=== PATIENT | male | born 1970 | race Caucasian/White ===

== ENCOUNTER 2017-10-11 20:49 | Emergency (ER) | payer MEDICAID, OTHER ==
[~2017-10-11] VITALS: Ht 188 cm; Wt 134.3 kg
[2017-10-11 22:15] VITALS: BP 130/83
== END 2017-10-11 23:21 | disposition home or self-care (01) ==
LOC: ER 20:49
DX: S82.201K Unspecified fracture of shaft of right tibia, subsequent encounter for closed fracture with nonunion (principal); S82.401K Unspecified fracture of shaft of right fibula, subsequent encounter for closed fracture with nonunion; F15.10 Other stimulant abuse, uncomplicated; G89.29 Other chronic pain; Z88.5 Allergy status to narcotic agent; Z88.8 Allergy status to other drugs, medicaments and biological substances; W01.0XXA Fall on same level from slipping, tripping and stumbling without subsequent striking against object, initial encounter; Y93.89 Activity, other specified; Y92.89 Other specified places as the place of occurrence of the external cause; Y99.8 Other external cause status
CPT/HCPCS: 73590; 99284

== ENCOUNTER 2017-10-22 14:09 | Emergency (ER) | payer MEDICAID ==
[~2017-10-22] VITALS: Ht 188 cm; Wt 83.8 kg
[2017-10-22 14:39] VITALS: BP 135/98
== END 2017-10-22 14:40 | disposition home or self-care (01) ==
LOC: ER 14:09
DX: S82.191G Other fracture of upper end of right tibia, subsequent encounter for closed fracture with delayed healing (principal); S82.491 Other fracture of shaft of right fibula; G89.29 Other chronic pain; F15.90 Other stimulant use, unspecified, uncomplicated; Z88.6 Allergy status to analgesic agent; Z88.5 Allergy status to narcotic agent; X58.XXXD Exposure to other specified factors, subsequent encounter
CPT/HCPCS: 99281

== ENCOUNTER 2017-10-31 16:16 | Emergency (ER) | payer MEDICAID ==
[~2017-10-31] VITALS: Ht 185.4 cm; Wt 97.0 kg
[2017-10-31 16:29] VITALS: BP 138/90
[2017-11-01] MEDS ORDERED: AZIT250T2 PO (19:07)
== END 2017-10-31 19:36 | disposition left against medical advice (07) ==
LOC: ER 16:17
DX: J00 Acute nasopharyngitis [common cold] (principal); R05 Cough; R68.89 Other general symptoms and signs; Z53.21 Procedure and treatment not carried out due to patient leaving prior to being seen by health care provider

== ENCOUNTER 2017-11-01 17:30 | Emergency (ER) | payer MEDICAID ==
[~2017-11-01] VITALS: Ht 188 cm; Wt 81.4 kg
[2017-11-01 18:13] VITALS: BP 127/86
[2017-11-01] MEDS ORDERED: AZIT250T2 PO (19:07)
== END 2017-11-01 19:15 | disposition home or self-care (01) ==
LOC: ER 17:30
DX: J20.9 Acute bronchitis, unspecified (principal); R50.9 Fever, unspecified; G89.29 Other chronic pain; F15.90 Other stimulant use, unspecified, uncomplicated; Z59.0 Homelessness; Z56.0 Unemployment, unspecified; Z88.1 Allergy status to other antibiotic agents; Z88.5 Allergy status to narcotic agent; Z88.8 Allergy status to other drugs, medicaments and biological substances; Z79.2 Long term (current) use of antibiotics
CPT/HCPCS: 99283

== ENCOUNTER 2023-12-07 13:06 | Emergency (ER) | payer MEDICAID ==
[~2023-12-07] VITALS: Ht 188 cm; Wt 79.0 kg
[2023-12-07] MEDS ORDERED: TRAM50TA2 PO (15:00)
[2023-12-07 15:04] VITALS: BP 109/76; PULSE 87; RESP 18; TEMP 98; O2SAT 95
== END 2023-12-07 15:07 | disposition home or self-care (01) ==
LOC: ER 13:07
DX: S80.11XA Contusion of right lower leg, initial encounter (principal); G89.29 Other chronic pain; M25.521 Pain in right elbow; F17.200 Nicotine dependence, unspecified, uncomplicated; F15.90 Other stimulant use, unspecified, uncomplicated; Z88.6 Allergy status to analgesic agent; Z88.1 Allergy status to other antibiotic agents; Z88.5 Allergy status to narcotic agent; Z88.8 Allergy status to other drugs, medicaments and biological substances; Z79.899 Other long term (current) drug therapy; W19.XXXA Unspecified fall, initial encounter; Y93.89 Activity, other specified; Y92.89 Other specified places as the place of occurrence of the external cause; Y99.8 Other external cause status
CPT/HCPCS: 73080; 73590; 99284; L4360

== ENCOUNTER 2024-02-12 19:52 | Inpatient (IN) | payer MEDICAID ==
[~2024-02-12] VITALS: Ht 188 cm; Wt 83.2 kg
[2024-02-12 20:30] LABS: BASOPHILS # (AUTO) 0.1 X10'3 (0-0.2); HEMOGLOBIN 14.6 g/dl (14.0-17.9); MEAN PLATELET VOLUME 8.6 FL (7.4-10.4); MONOCYTES # (AUTO) 0.6 X10'3 (0-0.9); NEUTROPHILS # (AUTO) 4.3 X10'3 (1.8-7.7); RED CELL DISTRIBUTION WIDTH 14.2 % (11.5-14.5)
[2024-02-12 20:31] LABS: BASOPHILS % (AUTO) 1.5 % (0-1); EOSINOPHILS # (AUTO) 1.1 X10'3 (0-0.9); EOSINOPHILS % (AUTO) 12.7 % (0-6); HEMATOCRIT 43.5 % (42.0-52.0); LYMPHOCYTES # (AUTO) 2.5 X10'3 (1.1-4.8); LYMPHOCYTES % (AUTO) 29.3 % (21-51); MEAN CORPUSCULAR HEMOGLOBIN 33.6 PG (27.0-31.0); MEAN CORPUSCULAR HGB CONC 33.6 g/dL (33.0-36.5); MONOCYTES % (AUTO) 7.1 % (2-12); NEUTROPHILS % (AUTO) 49.4 % (42-75); PLATELET COUNT 279 X10'3 (140-440); RED BLOOD COUNT 4.35 X10'6 (4.70-6.10); WHITE BLOOD COUNT 8.6 X10'3 (4.5-11.0)
[2024-02-12 20:41] LABS: ALANINE AMINOTRANSFERASE 52 U/L (12-78); ALBUMIN 3.3 G/DL (3.4-5.0); ALBUMIN/GLOBULIN RATIO 1.1 (1.1-1.5); ALKALINE PHOSPHATASE 81 IU/L (46-116); ANION GAP 9 (8-16); ASPARTATE AMINO TRANSFERASE 38 U/L (10-37); BILIRUBIN,TOTAL 0.9 MG/DL (0.1-1.0); BLOOD UREA NITROGEN 18 MG/DL (7-18); BUN/CREATININE RATIO 18.2 (10.0-20.0); CALCIUM 8.1 MG/DL (8.5-10.1); CHLORIDE 106 MMOL/L (99-107); CREATININE 0.99 MG/DL (0.60-1.10); GLUCOSE 125 MG/DL (70-104); POTASSIUM 3.5 MMOL/L (3.5-5.1); SODIUM 138 MMOL/L (135-145); TOTAL CARBON DIOXIDE 23.5 MMOL/L (24-32); TOTAL PROTEIN 6.4 G/DL (6.4-8.2); eCRCL 99 ML/MIN; eGFR 79 ML/MIN
[2024-02-12 20:49] LABS: PRO BRAIN NATRIURETIC PEPTIDE 6545 PG/ML (0-125)
[2024-02-12] MEDS ORDERED: iohexol 350MG/ML 100ml bottle IV ONE (20:58)
[2024-02-12 21:10] LABS: BURR CELLS FEW; LARGE PLATELETS FEW; PLATELET ESTIMATE NORMAL; TARGET CELLS FEW
[2024-02-12 21:39] LABS: APTT 26 SECONDS (22-32); INR 1.1 INR; PROTHROMBIN TIME 11.3 SECONDS (9.0-12.0)
[2024-02-12] MEDS: furosemide 10 MG/1 ML 10ml inj IV ONE (21:47)
[2024-02-12] MEDS: aspirin 81mg tab.chew PO ONE (21:48)
[2024-02-12] MEDS: HEPARIN DRIP-CARDIAC**PHARMACIST-TO-DOSE IV ONE (21:53)
[2024-02-12] MEDS: heparin 10,000 units/1 ML INJ IV ONE (22:02)
[2024-02-12] MEDS: heparin 25,000 UNIT/250ml bag 250 ML IV PRN (22:04)
[2024-02-12] MEDS: MESSAGE TO NURSING IV ONE (22:10)
[2024-02-12 22:28] LABS: BASOPHILS # (AUTO) 0.1 X10'3 (0-0.2); MEAN PLATELET VOLUME 8.8 FL (7.4-10.4); MONOCYTES # (AUTO) 0.7 X10'3 (0-0.9)
[2024-02-12 22:29] LABS: BASOPHILS % (AUTO) 1.4 % (0-1); EOSINOPHILS % (AUTO) 10.3 % (0-6); HEMATOCRIT 45.6 % (42.0-52.0); HEMOGLOBIN 15.4 g/dl (14.0-17.9); LYMPHOCYTES # (AUTO) 2.2 X10'3 (1.1-4.8); LYMPHOCYTES % (AUTO) 22.6 % (21-51); MEAN CORPUSCULAR HEMOGLOBIN 33.8 PG (27.0-31.0); MEAN CORPUSCULAR HGB CONC 33.8 g/dL (33.0-36.5); MEAN CORPUSCULAR VOLUME 99.9 FL (78-98); MONOCYTES % (AUTO) 7.3 % (2-12); NEUTROPHILS # (AUTO) 5.7 X10'3 (1.8-7.7); NEUTROPHILS % (AUTO) 58.4 % (42-75); PLATELET COUNT 286 X10'3 (140-440); RED BLOOD COUNT 4.56 X10'6 (4.70-6.10); RED CELL DISTRIBUTION WIDTH 14.2 % (11.5-14.5); WHITE BLOOD COUNT 9.7 X10'3 (4.5-11.0)
[2024-02-12] MEDS ORDERED: magnesium sulf-water 2g/50mL 50 ML IV PRN (22:45)
[2024-02-12] MEDS ORDERED: magnesium hydroxide 30ml (MOM) UD suspension PO PRN (22:45)
[2024-02-12] MEDS ORDERED: PERFLUTREN PROTEIN-A MICROSPHR (Optison) 0.22 MG/ML 3ML VIAL IV PRN (22:45)
[2024-02-12] MEDS ORDERED: magnesium sulf-water 4G/100mL 100 ML IV PRN (22:45)
[2024-02-12] MEDS ORDERED: morphine 2 MG/ML inj. syringe IV PRN (22:45)
[2024-02-12] MEDS ORDERED: acetaminophen 325mg tablet PO PRN (22:45)
[2024-02-12] MEDS ORDERED: magnesium Cl slow-release 64mg tablet PO PRN (22:45)
[2024-02-12] MEDS ORDERED: ondansetron/PF 4mg/2ml inj IV PRN (22:45)
[2024-02-12] MEDS ORDERED: potassium Cl 40MEQ/1/2NS 520ml 520 ML IV PRN (22:45)
[2024-02-12] MEDS ORDERED: potassium Cl 20 mEq SR tablet PO PRN ×2 (22:45)
[2024-02-12] MEDS ORDERED: mag hydrox/Alum hydrox/simeth 30ml oral suspension PO PRN (22:45)
[2024-02-12] MEDS: ipratropium/albuterol 3ml nebule NEB SCH (23:00)
[2024-02-12 23:14] LABS: HEMOGLOBIN A1C 5.3 % (4.5-6.2)
[2024-02-12 23:18] VITALS: PULSE 98; RESP 12; O2SAT 94
[2024-02-12 23:25] VITALS: PULSE 95; RESP 12
[2024-02-13] VITALS (20 sets, daily range): BP systolic 78–113; BP diastolic 49–79; PULSE 79–116; RESP 12–22; TEMP 97.3–97.6; O2SAT 88–100
[2024-02-13] MEDS: normal saline 1000ml 1,000 ML IV SCH (00:05)
[2024-02-13] MEDS: CefTRIAXone 2gm/D5W 50ml BAG 50 ML IV ONE (00:05)
[2024-02-13] MEDS: methylPREDNISolone sod succ/PF 40mg inj. IV SCH ×2 (02:04→16:00)
[2024-02-13 05:04] LABS: BASOPHILS # (AUTO) 0.1 X10'3 (0-0.2); EOSINOPHILS # (AUTO) 0.4 X10'3 (0-0.9); HEMOGLOBIN 15.3 g/dl (14.0-17.9); LYMPHOCYTES # (AUTO) 0.9 X10'3 (1.1-4.8); MEAN PLATELET VOLUME 9.2 FL (7.4-10.4); MONOCYTES % (AUTO) 2.6 % (2-12)
[2024-02-13 05:06] LABS: BASOPHILS % (AUTO) 1.1 % (0-1); HEMATOCRIT 46.7 % (42.0-52.0); LYMPHOCYTES % (AUTO) 9.4 % (21-51); MEAN CORPUSCULAR HEMOGLOBIN 32.8 PG (27.0-31.0); MEAN CORPUSCULAR HGB CONC 32.8 g/dL (33.0-36.5); MEAN CORPUSCULAR VOLUME 100.1 FL (78-98); MONOCYTES # (AUTO) 0.3 X10'3 (0-0.9); NEUTROPHILS # (AUTO) 8.2 X10'3 (1.8-7.7); NEUTROPHILS % (AUTO) 82.9 % (42-75); PLATELET COUNT 288 X10'3 (140-440); RED BLOOD COUNT 4.67 X10'6 (4.70-6.10); RED CELL DISTRIBUTION WIDTH 14.1 % (11.5-14.5); WHITE BLOOD COUNT 9.9 X10'3 (4.5-11.0)
[2024-02-13 05:28] LABS: ALANINE AMINOTRANSFERASE 50 U/L (12-78); ALBUMIN 3.2 G/DL (3.4-5.0); ALBUMIN/GLOBULIN RATIO 0.9 (1.1-1.5); ALKALINE PHOSPHATASE 82 IU/L (46-116); ANION GAP 8 (8-16); ASPARTATE AMINO TRANSFERASE 39 U/L (10-37); BLOOD UREA NITROGEN 15 MG/DL (7-18); BUN/CREATININE RATIO 23.1 (10.0-20.0); CALCIUM 8.2 MG/DL (8.5-10.1); CHLORIDE 106 MMOL/L (99-107); CHOL/HDL RATIO 3.9 (0.00-4.99); CHOLESTEROL 146 MG/DL (0-200); CREATININE 0.65 MG/DL (0.60-1.10); GLUCOSE 124 MG/DL (70-104); HDL CHOLESTEROL 37 MG/DL (35-60); LDL CHOLESTEROL 101 MG/DL (50-100); POTASSIUM 3.5 MMOL/L (3.5-5.1); PRO BRAIN NATRIURETIC PEPTIDE 7635 PG/ML (0-125); SODIUM 140 MMOL/L (135-145); TOTAL PROTEIN 6.8 G/DL (6.4-8.2); TRIGLYCERIDES 66 MG/DL (20-135); eCRCL 151 ML/MIN; eGFR > 90 ML/MIN
[2024-02-13] MEDS: heparin 10,000 units/1 ML INJ IV PRN (05:51)
[2024-02-13] MEDS: MESSAGE TO NURSING IV ONE ×3 (05:54→20:50)
[2024-02-13] MEDS: atorvastatin 20mg tablet PO SCH (07:25)
[2024-02-13] MEDS: aspirin 81mg, enteric-coated 1 TAB TABLET.DR PO SCH (07:25)
[2024-02-13] MEDS: docusate sod 100mg capsule PO SCH (08:00)
[2024-02-13] MEDS: K and/or MAG REPLACEMENT MC SCH (08:00)
[2024-02-13] MEDS: carVEDilol 3.125mg tablet PO SCH (08:25)
[2024-02-13] MEDS ORDERED: nitroGLYCERIN 0.4mg SUBLingual tab SL PRN (08:25)
[2024-02-13] MEDS ORDERED: metoprolol tartrate 1mg/ml inj IV PRN (08:25)
[2024-02-13] MEDS ORDERED: aminophylline 250mg/10ml inj. IV PRN (08:25)
[2024-02-13] MEDS: regadenoson 0.4mg/5ml syringe IV PRN (16:52)
[2024-02-14] VITALS (13 sets, daily range): BP systolic 93–104; BP diastolic 58–79; PULSE 87–106; RESP 16–23; TEMP 96.9–98.4; O2SAT 92–98
[2024-02-14 05:53] LABS: BASOPHILS % (AUTO) 0.2 % (0-1); MONOCYTES # (AUTO) 0.3 X10'3 (0-0.9)
[2024-02-14 05:55] LABS: EOSINOPHILS % (AUTO) 0.1 % (0-6); HEMATOCRIT 48.2 % (42.0-52.0); HEMOGLOBIN 16.5 g/dl (14.0-17.9); LYMPHOCYTES # (AUTO) 0.9 X10'3 (1.1-4.8); LYMPHOCYTES % (AUTO) 8.1 % (21-51); MEAN CORPUSCULAR HEMOGLOBIN 34.2 PG (27.0-31.0); MEAN CORPUSCULAR HGB CONC 34.2 g/dL (33.0-36.5); MEAN CORPUSCULAR VOLUME 99.8 FL (78-98); MEAN PLATELET VOLUME 9.9 FL (7.4-10.4); MONOCYTES % (AUTO) 2.9 % (2-12); NEUTROPHILS # (AUTO) 9.7 X10'3 (1.8-7.7); NEUTROPHILS % (AUTO) 88.7 % (42-75); PLATELET COUNT 304 X10'3 (140-440); RED BLOOD COUNT 4.83 X10'6 (4.70-6.10); RED CELL DISTRIBUTION WIDTH 14.5 % (11.5-14.5)
[2024-02-14 05:58] LABS: ALANINE AMINOTRANSFERASE 43 U/L (12-78); ALBUMIN/GLOBULIN RATIO 0.8 (1.1-1.5); ALKALINE PHOSPHATASE 77 IU/L (46-116); ANION GAP 6 (8-16); ASPARTATE AMINO TRANSFERASE 22 U/L (10-37); BILIRUBIN,TOTAL 0.7 MG/DL (0.1-1.0); BLOOD UREA NITROGEN 17 MG/DL (7-18); CALCIUM 8.4 MG/DL (8.5-10.1); CHLORIDE 102 MMOL/L (99-107); CREATININE 0.81 MG/DL (0.60-1.10); GLUCOSE 160 MG/DL (70-104); MAGNESIUM 1.8 MG/DL (1.5-2.4); POTASSIUM 4.1 MMOL/L (3.5-5.1); SODIUM 133 MMOL/L (135-145); TOTAL CARBON DIOXIDE 25.4 MMOL/L (24-32); TOTAL PROTEIN 6.7 G/DL (6.4-8.2); eCRCL 121 ML/MIN; eGFR > 90 ML/MIN
[2024-02-14] MEDS: MESSAGE TO NURSING IV ONE (07:01)
[2024-02-14] MEDS: losartan 25mg tablet PO SCH (08:00)
[2024-02-14] MEDS: DAPAGLIFLOZIN 10MG TABLET PO SCH (10:01)
[2024-02-14] MEDS: nicotine 14mg patch - 24hr TD SCH (10:02)
[2024-02-14 18:15] LABS: BILIRUBIN,URINE NEGATIVE (Neg); CLARITY,URINE CLEAR (Clear); COLOR,URINE YELLOW (Yellow); GLUCOSE, URINE >=1000 mg/dl (Neg); KETONES,URINE NEGATIVE (Neg); LEUKOCYTE ESTERASE ,URINE NEGATIVE (Neg); NITRITES, URINE NEGATIVE (Neg); OCCULT BLOOD,URINE NEGATIVE (Neg); PH,URINE 7.5 (4.8-8.0); PROTEIN,URINE NEGATIVE (Neg)
[2024-02-14 18:22] LABS: UA COLLECTION TYPE NON-SPECIFIED
[2024-02-14 18:23] LABS: BACTERIA,URINE NONE SEEN /HPF (Neg); MUCUS STRANDS NONE SEEN /LPF (Neg); RBC,URINE 0-2 /HPF (0-2); SQUAMOUS EPITHELIAL CELL,UR NONE SEEN /LPF (FEW); WBC,URINE 0-4 /HPF (0-4)
[2024-02-14 18:24] LABS: URINE AMPHETAMINE SCREEN NEGATIVE (Neg); URINE BARBITUATE SCREEN NEGATIVE (Neg); URINE BENZODIAZEPINES SCREEN NEGATIVE (Neg); URINE CANNABINOID SCREEN NEGATIVE (Neg); URINE COCAINE SCREEN NEGATIVE (Neg); URINE METHADONE SCREEN NEGATIVE (Neg); URINE OPIATE SCREEN NEGATIVE (Neg); URINE PHENCYCLIDINE SCREEN NEGATIVE (Neg)
[2024-02-14] MEDS: heparin, porcine 5000 units/ml vial SQ SCH (20:58)
[2024-02-15] VITALS (8 sets, daily range): BP systolic 96–101; BP diastolic 71–77; PULSE 74–103; RESP 14–20; TEMP 97–97.6; O2SAT 95–100
[2024-02-15] MEDS: spironolactone 25 MG tablet PO SCH (07:42)
[2024-02-15] MEDS: furosemide 40mg tablet PO SCH (07:43)
[2024-02-15] MEDS: losartan 25mg tablet PO SCH (07:43)
[2024-02-15] MEDS ORDERED: DAPAGLIFLOZIN 10MG TABLET PO SCH (08:00)
[2024-02-15 08:12] LABS: HEMOGLOBIN 16.9 g/dl (14.0-17.9); LYMPHOCYTES # (AUTO) 0.8 X10'3 (1.1-4.8); MONOCYTES # (AUTO) 0.5 X10'3 (0-0.9); NEUTROPHILS # (AUTO) 11.1 X10'3 (1.8-7.7); RED CELL DISTRIBUTION WIDTH 14.3 % (11.5-14.5)
[2024-02-15 08:14] LABS: BASOPHILS % (AUTO) 0.1 % (0-1); EOSINOPHILS % (AUTO) 0 % (0-6); HEMATOCRIT 51.4 % (42.0-52.0); LYMPHOCYTES % (AUTO) 6.3 % (21-51); MEAN CORPUSCULAR HEMOGLOBIN 33.1 PG (27.0-31.0); MEAN CORPUSCULAR HGB CONC 32.9 g/dL (33.0-36.5); MEAN CORPUSCULAR VOLUME 100.5 FL (78-98); MEAN PLATELET VOLUME 10.2 FL (7.4-10.4); NEUTROPHILS % (AUTO) 89.6 % (42-75); PLATELET COUNT 275 X10'3 (140-440); RED BLOOD COUNT 5.11 X10'6 (4.70-6.10); WHITE BLOOD COUNT 12.4 X10'3 (4.5-11.0)
[2024-02-15 08:44] LABS: ALANINE AMINOTRANSFERASE 34 U/L (12-78); ALBUMIN 3.4 G/DL (3.4-5.0); ALBUMIN/GLOBULIN RATIO 0.9 (1.1-1.5); ALKALINE PHOSPHATASE 70 IU/L (46-116); ANION GAP 11 (8-16); ASPARTATE AMINO TRANSFERASE 20 U/L (10-37); BILIRUBIN,TOTAL 0.4 MG/DL (0.1-1.0); BLOOD UREA NITROGEN 20 MG/DL (7-18); BUN/CREATININE RATIO 26.7 (10.0-20.0); CALCIUM 9.1 MG/DL (8.5-10.1); CHLORIDE 99 MMOL/L (99-107); CREATININE 0.75 MG/DL (0.60-1.10); GLUCOSE 127 MG/DL (70-104); MAGNESIUM 2.2 MG/DL (1.5-2.4); SODIUM 133 MMOL/L (135-145); TOTAL CARBON DIOXIDE 23.5 MMOL/L (24-32); TOTAL PROTEIN 7.3 G/DL (6.4-8.2); eCRCL 131 ML/MIN; eGFR > 90 ML/MIN
[2024-02-15 08:45] LABS: POTASSIUM 4.6 MMOL/L (3.5-5.1)
[2024-02-15] MEDS ORDERED: NICO-631 TD (10:02)
[2024-02-15] MEDS ORDERED: DAPA10TA PO (10:02)
[2024-02-15] MEDS ORDERED: FURO20TA4 PO (10:02)
[2024-02-15] MEDS ORDERED: MIDO5TAB4 PO (10:02)
[2024-02-15] MEDS ORDERED: ATOR20TA66 PO (10:02)
[2024-02-15] MEDS ORDERED: ASPI-1071 PO (10:02)
[2024-02-15] MEDS ORDERED: COR3.125T PO (10:02)
[2024-02-15] MEDS ORDERED: SPIR25TA PO (10:02)
[2024-02-15] MEDS ORDERED: LOSA25TA41 PO (10:02)
== END 2024-02-15 14:32 | disposition home or self-care (01) | DRG 190 ==
LOC: ER 19:53 → ED HOLD 22:54 → EDBEDREQ 02-13 00:30 → PCU 3S 02-13 02:00
PROVIDERS: ADMIT Internal Medicine Pulmonary Disease; ATTEND Family Medicine
PROC: B32T1ZZ Computerized Tomography (CT Scan) of Left Pulmonary Artery using Low Osmolar Contrast (ICD-10-PCS; 2024-02-12)
PROC: B3201ZZ Computerized Tomography (CT Scan) of Thoracic Aorta using Low Osmolar Contrast (ICD-10-PCS; 2024-02-12)
PROC: B32S1ZZ Computerized Tomography (CT Scan) of Right Pulmonary Artery using Low Osmolar Contrast (ICD-10-PCS; 2024-02-12)
PROC: 4A02XM4 Measurement of Cardiac Total Activity, External Approach (ICD-10-PCS; principal; 2024-02-13)
PROC: 3E033HZ Introduction of Radioactive Substance into Peripheral Vein, Percutaneous Approach (ICD-10-PCS; 2024-02-13)
DX: I21.4 Non-ST elevation (NSTEMI) myocardial infarction (principal); I50.41 Acute combined systolic (congestive) and diastolic (congestive) heart failure; I42.0 Dilated cardiomyopathy; J44.1 Chronic obstructive pulmonary disease with (acute) exacerbation; F10.10 Alcohol abuse, uncomplicated; F15.10 Other stimulant abuse, uncomplicated; I42.7 Cardiomyopathy due to drug and external agent; G89.29 Other chronic pain; F17.210 Nicotine dependence, cigarettes, uncomplicated; Z88.5 Allergy status to narcotic agent; Z88.1 Allergy status to other antibiotic agents; Z90.81 Acquired absence of spleen; Z59.00 Homelessness unspecified
CPT/HCPCS: 36415; 71045; 71275; 78452; 80053; 80061; 80305; 81001; 83036; 83605; 83735; 83880; 84145; 84484; 85008; 85025; 85610; 85730; 87040; 87081; 93005; 93017; 93306; 94640; 94760; 99291; A4615; A6590; A9500; G0378; J0696; J1644; J1940; J2785; J2919; J7030; Q9967

== ENCOUNTER 2024-02-29 20:19 | Emergency (ER) | payer MEDICAID ==
[~2024-02-29] VITALS: Ht 188 cm; Wt 81.5 kg
[~2024-02-29 20:19] MED LIST: ASPI-1071 PO; ATOR20TA66 PO; COR3.125T PO; DAPA10TA PO; FURO20TA4 PO; LOSA25TA41 PO; MIDO5TAB4 PO; NICO-631 TD; SPIR25TA PO
[2024-02-29] MEDS ORDERED: DAPA10TA PO (20:58)
[2024-02-29] MEDS ORDERED: NICO-631 TOP (20:58)
[2024-02-29] MEDS ORDERED: CARV3.122 PO (20:58)
[2024-02-29 21:13] VITALS: BP 97/58; PULSE 92; RESP 15; TEMP 98.1; O2SAT 96
== END 2024-02-29 21:15 | disposition home or self-care (01) ==
LOC: ER 20:20
DX: I10 Essential (primary) hypertension (principal); G89.29 Other chronic pain; F15.90 Other stimulant use, unspecified, uncomplicated; Z88.8 Allergy status to other drugs, medicaments and biological substances; Z88.5 Allergy status to narcotic agent; Z88.6 Allergy status to analgesic agent; Z79.82 Long term (current) use of aspirin; Z79.899 Other long term (current) drug therapy; Z72.89 Other problems related to lifestyle; Z59.00 Homelessness unspecified; Z56.0 Unemployment, unspecified; Z76.0 Encounter for issue of repeat prescription
CPT/HCPCS: 99281

== ENCOUNTER 2024-03-11 02:05 | Inpatient (IN) | payer MEDICAID ==
[2024-03-11] VITALS (7 sets, daily range): BP systolic 96–102; BP diastolic 66–75; PULSE 95–108; RESP 14–20; TEMP 97.2–98.1; O2SAT 94–100
[~2024-03-11] VITALS: Ht 188 cm; Wt 79.8 kg
[~2024-03-11 02:05] MED LIST changes: +CARV3.122 PO; +NICO-631 TOP
[2024-03-11 02:46] LABS: BASOPHILS # (AUTO) 0.1 X10'3 (0-0.2); BASOPHILS % (AUTO) 1.3 % (0-1); EOSINOPHILS # (AUTO) 0.2 X10'3 (0-0.9); EOSINOPHILS % (AUTO) 3.2 % (0-6); HEMATOCRIT 38.7 % (42.0-52.0); LYMPHOCYTES # (AUTO) 2.1 X10'3 (1.1-4.8); LYMPHOCYTES % (AUTO) 28.9 % (21-51); MEAN CORPUSCULAR HEMOGLOBIN 33.2 PG (27.0-31.0); MEAN CORPUSCULAR HGB CONC 33.6 g/dL (33.0-36.5); MEAN CORPUSCULAR VOLUME 98.7 FL (78-98); MEAN PLATELET VOLUME 8.3 FL (7.4-10.4); MONOCYTES # (AUTO) 0.6 X10'3 (0-0.9); MONOCYTES % (AUTO) 7.9 % (2-12); NEUTROPHILS # (AUTO) 4.2 X10'3 (1.8-7.7); NEUTROPHILS % (AUTO) 58.7 % (42-75); PLATELET COUNT 279 X10'3 (140-440); RED BLOOD COUNT 3.92 X10'6 (4.70-6.10); RED CELL DISTRIBUTION WIDTH 13.7 % (11.5-14.5); WHITE BLOOD COUNT 7.2 X10'3 (4.5-11.0)
[2024-03-11 03:00] LABS: ALANINE AMINOTRANSFERASE 153 U/L (12-78); ALBUMIN 2.9 G/DL (3.4-5.0); ALBUMIN/GLOBULIN RATIO 0.8 (1.1-1.5); ALKALINE PHOSPHATASE 178 IU/L (46-116); ANION GAP 9 (8-16); ASPARTATE AMINO TRANSFERASE 120 U/L (10-37); BLOOD UREA NITROGEN 19 MG/DL (7-18); BUN/CREATININE RATIO 19.6 (10.0-20.0); CALCIUM 7.9 MG/DL (8.5-10.1); CHLORIDE 102 MMOL/L (99-107); CREATININE 0.97 MG/DL (0.60-1.10); GLUCOSE 118 MG/DL (70-104); POTASSIUM 3.2 MMOL/L (3.5-5.1); SODIUM 134 MMOL/L (135-145); TOTAL CARBON DIOXIDE 22.6 MMOL/L (24-32); TOTAL PROTEIN 6.7 G/DL (6.4-8.2); eCRCL 98 ML/MIN; eGFR 81 ML/MIN
[2024-03-11 03:07] LABS: PRO BRAIN NATRIURETIC PEPTIDE 15609 PG/ML (0-125)
[2024-03-11 03:34] LABS: ETHANOL < 10 MG/DL (<10); MAGNESIUM 1.7 MG/DL (1.5-2.4)
[2024-03-11] MEDS: furosemide 10 MG/1 ML 10ml inj IV ONE (03:35)
[2024-03-11] MEDS ORDERED: magnesium sulf-water 4G/100mL 100 ML IV PRN (04:40)
[2024-03-11] MEDS ORDERED: ondansetron/PF 4mg/2ml inj IV PRN (04:40)
[2024-03-11] MEDS ORDERED: potassium Cl 40MEQ/1/2NS 520ml 520 ML IV PRN (04:40)
[2024-03-11] MEDS ORDERED: magnesium Cl slow-release 64mg tablet PO PRN (04:40)
[2024-03-11] MEDS ORDERED: mag hydrox/Alum hydrox/simeth 30ml oral suspension PO PRN (04:40)
[2024-03-11] MEDS ORDERED: potassium Cl 20 mEq SR tablet PO PRN (04:40)
[2024-03-11] MEDS ORDERED: magnesium sulf-water 2g/50mL 50 ML IV PRN (04:40)
[2024-03-11] MEDS: aspirin 325mg tablet PO ONE (04:44)
[2024-03-11] MEDS: carVEDilol 3.125mg tablet PO SCH ×2 (04:44→08:09)
[2024-03-11 04:51] LABS: APTT 25 SECONDS (22-32); INR 1.1 INR; PROTHROMBIN TIME 11.9 SECONDS (9.0-12.0)
[2024-03-11] MEDS: LORazepam 2 mg/ml vial IV ONE (05:19)
[2024-03-11] MEDS: enoxaparin 100mg/ml syringe SUBCUT ONE (05:30)
[2024-03-11] MEDS: K and/or MAG REPLACEMENT MC SCH (07:40)
[2024-03-11] MEDS: atorvastatin 20mg tablet PO SCH (08:07)
[2024-03-11] MEDS: potassium Cl 20 mEq SR tablet PO PRN (08:08)
[2024-03-11] MEDS: midodrine tablet 2.5 MG TABLET PO SCH (08:08)
[2024-03-11] MEDS: furosemide 10 MG/1 ML 10ml inj IV SCH (08:08)
[2024-03-11] MEDS: aspirin 81mg, enteric-coated 1 TAB TABLET.DR PO SCH (08:09)
[2024-03-11] MEDS: spironolactone 25 MG tablet PO SCH (08:10)
[2024-03-11] MEDS: ipratropium/albuterol 3ml nebule NEB PRN (08:50)
[2024-03-11 10:25] LABS: URINE AMPHETAMINE SCREEN POSITIVE (Neg); URINE BARBITUATE SCREEN NEGATIVE (Neg); URINE BENZODIAZEPINES SCREEN NEGATIVE (Neg); URINE CANNABINOID SCREEN NEGATIVE (Neg); URINE COCAINE SCREEN NEGATIVE (Neg); URINE METHADONE SCREEN NEGATIVE (Neg); URINE OPIATE SCREEN NEGATIVE (Neg); URINE PHENCYCLIDINE SCREEN NEGATIVE (Neg)
[2024-03-11 11:12] LABS: BILIRUBIN,URINE NEGATIVE (Neg); CLARITY,URINE CLEAR (Clear); COLOR,URINE YELLOW (Yellow); GLUCOSE, URINE NEGATIVE (Neg); KETONES,URINE NEGATIVE (Neg); LEUKOCYTE ESTERASE ,URINE NEGATIVE (Neg); NITRITES, URINE NEGATIVE (Neg); OCCULT BLOOD,URINE NEGATIVE (Neg); PROTEIN,URINE NEGATIVE (Neg); UROBILINOGEN,URINE 0.2 E.U/dL (0.2-1.0)
[2024-03-11 11:18] LABS: UA COLLECTION TYPE VOIDED
[2024-03-11] MEDS: midodrine 5mg tablet ONE (13:24)
[2024-03-11] MEDS: heparin, porcine 5000 units/ml vial SQ SCH (20:39)
[2024-03-11] MEDS ORDERED: cyclobenzaprine 10mg tablet PO PRN (22:20)
[2024-03-11] MEDS ORDERED: HYDROcodone/acetaminophen 10/325mg tab PO PRN (22:20)
[2024-03-12] VITALS (13 sets, daily range): BP systolic 98–113; BP diastolic 63–76; PULSE 74–114; RESP 16–23; TEMP 97.4–98.6; O2SAT 20–98
[2024-03-12 10:54] LABS: BASOPHILS # (AUTO) 0.1 X10'3 (0-0.2); BASOPHILS % (AUTO) 1.2 % (0-1); LYMPHOCYTES # (AUTO) 1.9 X10'3 (1.1-4.8); MEAN CORPUSCULAR HEMOGLOBIN 33.2 PG (27.0-31.0); MONOCYTES # (AUTO) 0.6 X10'3 (0-0.9); NEUTROPHILS # (AUTO) 6.5 X10'3 (1.8-7.7); WHITE BLOOD COUNT 9.5 X10'3 (4.5-11.0)
[2024-03-12 10:56] LABS: EOSINOPHILS # (AUTO) 0.4 X10'3 (0-0.9); HEMOGLOBIN 15.3 g/dl (14.0-17.9); LYMPHOCYTES % (AUTO) 20.5 % (21-51); MEAN CORPUSCULAR HGB CONC 33.4 g/dL (33.0-36.5); MEAN CORPUSCULAR VOLUME 99.5 FL (78-98); MEAN PLATELET VOLUME 9.6 FL (7.4-10.4); MONOCYTES % (AUTO) 6.2 % (2-12); NEUTROPHILS % (AUTO) 68.1 % (42-75); PLATELET COUNT 284 X10'3 (140-440); RED BLOOD COUNT 4.62 X10'6 (4.70-6.10)
[2024-03-12 11:06] LABS: INR 1.1 INR; PROTHROMBIN TIME 11.6 SECONDS (9.0-12.0)
[2024-03-12 11:09] LABS: ALBUMIN 2.9 G/DL (3.4-5.0); ANION GAP 7 (8-16); BLOOD UREA NITROGEN 17 MG/DL (7-18); BUN/CREATININE RATIO 18.5 (10.0-20.0); CALCIUM 8.9 MG/DL (8.5-10.1); CHLORIDE 100 MMOL/L (99-107); CREATININE 0.92 MG/DL (0.60-1.10); GLUCOSE 137 MG/DL (70-104); MAGNESIUM 1.9 MG/DL (1.5-2.4); PHOSPHORUS 3.3 MG/DL (2.3-4.5); POTASSIUM 4.1 MMOL/L (3.5-5.1); SODIUM 135 MMOL/L (135-145); eCRCL 104 ML/MIN; eGFR 86 ML/MIN
[2024-03-12] MEDS: oxyCODONE/APAP 5-325mg tablet PO PRN (16:37)
[2024-03-12] MEDS: midodrine 5mg tablet PO SCH (16:37)
[2024-03-12 18:31] LABS: D-DIMER 0.76 MG/L FEU (0-0.50)
[2024-03-12] MEDS ORDERED: carVEDilol 3.125mg tablet PO SCH ×2 (20:00)
[2024-03-12] MEDS: furosemide 20MG tablet PO ONE (23:17)
[2024-03-13] VITALS (13 sets, daily range): BP systolic 89–100; BP diastolic 62–77; PULSE 93–113; RESP 14–26; TEMP 97.3–97.6; O2SAT 95–98
[2024-03-13 06:52] LABS: HBSAG SCREEN Negative (Negative); HEP B CORE AB, IGM Negative (Negative); HEP B CORE AB, TOT Negative (Negative); HEP B SURF AB Non Reactive (.)
[2024-03-13] MEDS ORDERED: furosemide 20MG tablet PO SCH (08:00)
[2024-03-13] MEDS ORDERED: DAPAGLIFLOZIN 10MG TABLET PO SCH (08:00)
[2024-03-13] MEDS ORDERED: aspirin 81mg, enteric-coated 1 TAB TABLET.DR PO SCH (08:00)
[2024-03-13] MEDS ORDERED: spironolactone 25 MG tablet PO SCH (08:00)
[2024-03-13] MEDS: DAPAGLIFLOZIN 10MG TABLET PO SCH (08:00)
[2024-03-13] MEDS ORDERED: nicotine 14mg patch - 24hr TD SCH (08:00)
[2024-03-13] MEDS ORDERED: atorvastatin 20mg tablet PO SCH (08:00)
[2024-03-13] MEDS: losartan 25mg tablet PO SCH (08:00)
[2024-03-13] MEDS: nicotine 14mg patch - 24hr TD SCH (09:11)
[2024-03-13] MEDS: LORazepam 1 MG tablet PO SCH (09:11)
[2024-03-13 09:54] LABS: BASOPHILS # (AUTO) 0.1 X10'3 (0-0.2); BASOPHILS % (AUTO) 0.8 % (0-1); EOSINOPHILS # (AUTO) 0.3 X10'3 (0-0.9); EOSINOPHILS % (AUTO) 3.5 % (0-6); HEMATOCRIT 42.6 % (42.0-52.0); HEMOGLOBIN 14.3 g/dl (14.0-17.9); LYMPHOCYTES # (AUTO) 1.4 X10'3 (1.1-4.8); LYMPHOCYTES % (AUTO) 14.7 % (21-51); MEAN CORPUSCULAR HEMOGLOBIN 33.3 PG (27.0-31.0); MEAN CORPUSCULAR HGB CONC 33.6 g/dL (33.0-36.5); MEAN PLATELET VOLUME 9.7 FL (7.4-10.4); MONOCYTES # (AUTO) 0.6 X10'3 (0-0.9); MONOCYTES % (AUTO) 6.1 % (2-12); NEUTROPHILS # (AUTO) 7.2 X10'3 (1.8-7.7); NEUTROPHILS % (AUTO) 74.9 % (42-75); PLATELET COUNT 274 X10'3 (140-440); RED CELL DISTRIBUTION WIDTH 13.8 % (11.5-14.5); WHITE BLOOD COUNT 9.6 X10'3 (4.5-11.0)
[2024-03-13 11:22] LABS: ALBUMIN 2.5 G/DL (3.4-5.0); ANION GAP 10 (8-16); BLOOD UREA NITROGEN 16 MG/DL (7-18); CHLORIDE 98 MMOL/L (99-107); CREATININE 0.89 MG/DL (0.60-1.10); GLUCOSE 183 MG/DL (70-104); MAGNESIUM 1.5 MG/DL (1.5-2.4); PHOSPHORUS 4.2 MG/DL (2.3-4.5); POTASSIUM 3.9 MMOL/L (3.5-5.1); SODIUM 134 MMOL/L (135-145); TOTAL CARBON DIOXIDE 25.8 MMOL/L (24-32); eCRCL 107 ML/MIN; eGFR 89 ML/MIN
[2024-03-14] VITALS (11 sets, daily range): BP systolic 89–108; BP diastolic 45–74; PULSE 87–112; RESP 17–28; TEMP 97.6–98.2; O2SAT 91–98
[2024-03-14 07:59] LABS: BASOPHILS # (AUTO) 0.1 X10'3 (0-0.2); BASOPHILS % (AUTO) 1.1 % (0-1); EOSINOPHILS # (AUTO) 0.3 X10'3 (0-0.9); EOSINOPHILS % (AUTO) 2.5 % (0-6); HEMATOCRIT 44.1 % (42.0-52.0); HEMOGLOBIN 14.8 g/dl (14.0-17.9); LYMPHOCYTES # (AUTO) 2.2 X10'3 (1.1-4.8); LYMPHOCYTES % (AUTO) 19.3 % (21-51); MEAN CORPUSCULAR HEMOGLOBIN 33.4 PG (27.0-31.0); MEAN CORPUSCULAR HGB CONC 33.6 g/dL (33.0-36.5); MEAN CORPUSCULAR VOLUME 99.5 FL (78-98); MEAN PLATELET VOLUME 9.7 FL (7.4-10.4); MONOCYTES # (AUTO) 0.8 X10'3 (0-0.9); MONOCYTES % (AUTO) 7.3 % (2-12); NEUTROPHILS # (AUTO) 7.8 X10'3 (1.8-7.7); NEUTROPHILS % (AUTO) 69.8 % (42-75); PLATELET COUNT 276 X10'3 (140-440); RED BLOOD COUNT 4.43 X10'6 (4.70-6.10); RED CELL DISTRIBUTION WIDTH 14.2 % (11.5-14.5); WHITE BLOOD COUNT 11.2 X10'3 (4.5-11.0)
[2024-03-14 08:08] LABS: ALBUMIN 2.6 G/DL (3.4-5.0); ANION GAP 9 (8-16); BLOOD UREA NITROGEN 19 MG/DL (7-18); BUN/CREATININE RATIO 18.3 (10.0-20.0); CALCIUM 8.1 MG/DL (8.5-10.1); CHLORIDE 100 MMOL/L (99-107); CREATININE 1.04 MG/DL (0.60-1.10); GLUCOSE 114 MG/DL (70-104); MAGNESIUM 1.8 MG/DL (1.5-2.4); PHOSPHORUS 4.5 MG/DL (2.3-4.5); POTASSIUM 4.2 MMOL/L (3.5-5.1); SODIUM 135 MMOL/L (135-145); TOTAL CARBON DIOXIDE 26.2 MMOL/L (24-32); eCRCL 91 ML/MIN; eGFR 74 ML/MIN
[2024-03-14] MEDS: losartan 25mg tablet PO SCH (08:56)
[2024-03-14] MEDS ORDERED: aminophylline 250mg/10ml inj. IV PRN (12:35)
[2024-03-14] MEDS ORDERED: metoprolol tartrate 1mg/ml inj IV PRN (12:35)
[2024-03-14] MEDS ORDERED: nitroGLYCERIN 0.4mg SUBLingual tab SL PRN (12:35)
[2024-03-14] MEDS ORDERED: regadenoson 0.4mg/5ml syringe IV PRN (12:35)
[2024-03-14] MEDS: benzonatate 100mg capsule PO PRN (20:32)
[2024-03-15] VITALS (13 sets, daily range): BP systolic 84–104; BP diastolic 50–84; PULSE 78–118; RESP 19–30; TEMP 97.7–98.5; O2SAT 95–99
[2024-03-15 06:46] LABS: BASOPHILS # (AUTO) 0.1 X10'3 (0-0.2); BASOPHILS % (AUTO) 0.9 % (0-1); EOSINOPHILS # (AUTO) 0.4 X10'3 (0-0.9); EOSINOPHILS % (AUTO) 3.6 % (0-6); HEMATOCRIT 43.9 % (42.0-52.0); HEMOGLOBIN 14.6 g/dl (14.0-17.9); LYMPHOCYTES # (AUTO) 2.1 X10'3 (1.1-4.8); LYMPHOCYTES % (AUTO) 19.6 % (21-51); MEAN CORPUSCULAR HGB CONC 33.3 g/dL (33.0-36.5); MEAN PLATELET VOLUME 9.7 FL (7.4-10.4); MONOCYTES # (AUTO) 0.8 X10'3 (0-0.9); MONOCYTES % (AUTO) 7.8 % (2-12); NEUTROPHILS # (AUTO) 7.2 X10'3 (1.8-7.7); NEUTROPHILS % (AUTO) 68.1 % (42-75); PLATELET COUNT 286 X10'3 (140-440); RED BLOOD COUNT 4.44 X10'6 (4.70-6.10); RED CELL DISTRIBUTION WIDTH 14.2 % (11.5-14.5); WHITE BLOOD COUNT 10.6 X10'3 (4.5-11.0)
[2024-03-15 06:55] LABS: ALBUMIN 2.6 G/DL (3.4-5.0); ANION GAP 10 (8-16); BLOOD UREA NITROGEN 23 MG/DL (7-18); CALCIUM 8.4 MG/DL (8.5-10.1); CHLORIDE 99 MMOL/L (99-107); GLUCOSE 140 MG/DL (70-104); MAGNESIUM 2.1 MG/DL (1.5-2.4); PHOSPHORUS 4.6 MG/DL (2.3-4.5); POTASSIUM 4.9 MMOL/L (3.5-5.1); SODIUM 131 MMOL/L (135-145); TOTAL CARBON DIOXIDE 22.2 MMOL/L (24-32); eCRCL 94 ML/MIN; eGFR 78 ML/MIN
[2024-03-16] VITALS (10 sets, daily range): BP systolic 89–124; BP diastolic 57–73; PULSE 97–109; RESP 13–32; TEMP 97.3–98.7; O2SAT 93–98
[2024-03-16 06:18] LABS: BASOPHILS # (AUTO) 0.1 X10'3 (0-0.2); BASOPHILS % (AUTO) 1.2 % (0-1); EOSINOPHILS # (AUTO) 0.3 X10'3 (0-0.9); EOSINOPHILS % (AUTO) 2.5 % (0-6); HEMATOCRIT 46.3 % (42.0-52.0); HEMOGLOBIN 15.3 g/dl (14.0-17.9); LYMPHOCYTES # (AUTO) 2.4 X10'3 (1.1-4.8); MEAN CORPUSCULAR HEMOGLOBIN 32.8 PG (27.0-31.0); MEAN CORPUSCULAR HGB CONC 33.1 g/dL (33.0-36.5); MEAN CORPUSCULAR VOLUME 99.1 FL (78-98); MEAN PLATELET VOLUME 10.1 FL (7.4-10.4); MONOCYTES # (AUTO) 1.1 X10'3 (0-0.9); MONOCYTES % (AUTO) 9.8 % (2-12); NEUTROPHILS # (AUTO) 7.4 X10'3 (1.8-7.7); NEUTROPHILS % (AUTO) 65.5 % (42-75); PLATELET COUNT 278 X10'3 (140-440); RED BLOOD COUNT 4.67 X10'6 (4.70-6.10); RED CELL DISTRIBUTION WIDTH 14.1 % (11.5-14.5); WHITE BLOOD COUNT 11.3 X10'3 (4.5-11.0)
[2024-03-16 06:49] LABS: ALBUMIN 2.6 G/DL (3.4-5.0); ANION GAP 10 (8-16); BLOOD UREA NITROGEN 21 MG/DL (7-18); BUN/CREATININE RATIO 23.1 (10.0-20.0); CALCIUM 8.5 MG/DL (8.5-10.1); CHLORIDE 99 MMOL/L (99-107); CREATININE 0.91 MG/DL (0.60-1.10); GLUCOSE 107 MG/DL (70-104); MAGNESIUM 2.2 MG/DL (1.5-2.4); PHOSPHORUS 4.2 MG/DL (2.3-4.5); SODIUM 133 MMOL/L (135-145); eCRCL 104 ML/MIN; eGFR 86 ML/MIN
[2024-03-16] MEDS: LORazepam 1 MG tablet PO PRN (10:38)
[2024-03-16] MEDS: metoprolol succinate 25mg (24-HOUR) SR. Tablet PO SCH (20:44)
[2024-03-17 02:00] VITALS: BP 102/67; PULSE 94; RESP 17; TEMP 96.8; O2SAT 92
[2024-03-17 06:00] VITALS: BP 87/58; PULSE 69; RESP 24; TEMP 97.2; O2SAT 94
[2024-03-17 08:00] VITALS: RESP 24; O2SAT 96
[2024-03-17 08:44] VITALS: PULSE 102; RESP 20; O2SAT 93
[2024-03-17 08:50] VITALS: RESP 22
[2024-03-17 08:51] VITALS: BP_SYST 113; PULSE 104
[2024-03-17] MEDS: furosemide 40mg/4ml inj IV SCH (08:51)
== END 2024-03-17 10:30 | disposition left against medical advice (07) | DRG 133 ==
LOC: ER 02:06 → ED HOLD 04:41 → PCU 3S 16:55
PROVIDERS: ADMIT Internal Medicine Sleep Medicine; ATTEND Family Medicine
DX: J96.01 Acute respiratory failure with hypoxia (principal); I50.43 Acute on chronic combined systolic (congestive) and diastolic (congestive) heart failure; I21.A1 Myocardial infarction type 2; E87.1 Hypo-osmolality and hyponatremia; F41.9 Anxiety disorder, unspecified; E87.6 Hypokalemia; I42.7 Cardiomyopathy due to drug and external agent; F15.129 Other stimulant abuse with intoxication, unspecified; Z53.21 Procedure and treatment not carried out due to patient leaving prior to being seen by health care provider; F10.20 Alcohol dependence, uncomplicated; G89.29 Other chronic pain; I25.2 Old myocardial infarction; Z87.891 Personal history of nicotine dependence; Z59.00 Homelessness unspecified; Z88.5 Allergy status to narcotic agent; Z88.8 Allergy status to other drugs, medicaments and biological substances; Z79.82 Long term (current) use of aspirin; Z79.899 Other long term (current) drug therapy; Z88.1 Allergy status to other antibiotic agents
CPT/HCPCS: 36415; 71045; 71250; 80048; 80053; 80305; 80320; 81003; 83605; 83735; 83880; 84100; 84484; 85025; 85379; 85610; 85730; 86704; 86705; 86706; 87081; 87340; 93005; 94640; 94760; 99285; A4615; G0378; J1644; J1650; J1940

== ENCOUNTER 2024-03-17 10:40 | Emergency (ER) | payer MEDICAID ==
[~2024-03-17] VITALS: Ht 188 cm; Wt 84.1 kg
[2024-03-17 10:45] VITALS: BP 113/80; PULSE 75; RESP 18; TEMP 98; O2SAT 96
== END 2024-03-17 17:06 | disposition left against medical advice (07) ==
LOC: ER 10:41
DX: R06.02 Shortness of breath (principal); I25.2 Old myocardial infarction; I50.9 Heart failure, unspecified; G89.29 Other chronic pain; F17.210 Nicotine dependence, cigarettes, uncomplicated; F15.90 Other stimulant use, unspecified, uncomplicated; Z59.00 Homelessness unspecified; Z56.0 Unemployment, unspecified; Z53.21 Procedure and treatment not carried out due to patient leaving prior to being seen by health care provider; Z88.8 Allergy status to other drugs, medicaments and biological substances; Z88.5 Allergy status to narcotic agent; Z88.1 Allergy status to other antibiotic agents; Z79.82 Long term (current) use of aspirin; Z79.899 Other long term (current) drug therapy

== ENCOUNTER 2024-03-18 03:06 | Inpatient (IN) | payer MEDICAID ==
[~2024-03-18] VITALS: Ht 188 cm; Wt 78.2 kg
[2024-03-18 05:38] LABS: BASOPHILS # (AUTO) 0.1 X10'3 (0-0.2); BASOPHILS % (AUTO) 0.8 % (0-1); EOSINOPHILS # (AUTO) 0.1 X10'3 (0-0.9); EOSINOPHILS % (AUTO) 1.1 % (0-6); HEMATOCRIT 38.8 % (42.0-52.0); HEMOGLOBIN 12.8 g/dl (14.0-17.9); LYMPHOCYTES # (AUTO) 1.7 X10'3 (1.1-4.8); LYMPHOCYTES % (AUTO) 14.9 % (21-51); MEAN CORPUSCULAR HEMOGLOBIN 32.5 PG (27.0-31.0); MEAN CORPUSCULAR HGB CONC 32.9 g/dL (33.0-36.5); MEAN CORPUSCULAR VOLUME 98.8 FL (78-98); MEAN PLATELET VOLUME 9.3 FL (7.4-10.4); MONOCYTES # (AUTO) 0.9 X10'3 (0-0.9); MONOCYTES % (AUTO) 8.1 % (2-12); NEUTROPHILS # (AUTO) 8.5 X10'3 (1.8-7.7); NEUTROPHILS % (AUTO) 75.1 % (42-75); PLATELET COUNT 285 X10'3 (140-440); RED BLOOD COUNT 3.93 X10'6 (4.70-6.10); WHITE BLOOD COUNT 11.3 X10'3 (4.5-11.0)
[2024-03-18 05:43] LABS: ALANINE AMINOTRANSFERASE 59 U/L (12-78); ALBUMIN 2.9 G/DL (3.4-5.0); ALBUMIN/GLOBULIN RATIO 0.8 (1.1-1.5); ALKALINE PHOSPHATASE 182 IU/L (46-116); ANION GAP 9 (8-16); ASPARTATE AMINO TRANSFERASE 40 U/L (10-37); BLOOD UREA NITROGEN 27 MG/DL (7-18); BUN/CREATININE RATIO 25.2 (10.0-20.0); CALCIUM 8.5 MG/DL (8.5-10.1); CHLORIDE 97 MMOL/L (99-107); CREATININE 1.07 MG/DL (0.60-1.10); GLUCOSE 117 MG/DL (70-104); POTASSIUM 3.8 MMOL/L (3.5-5.1); SODIUM 131 MMOL/L (135-145); TOTAL CARBON DIOXIDE 25.2 MMOL/L (24-32); TOTAL PROTEIN 6.6 G/DL (6.4-8.2); eCRCL 86 ML/MIN; eGFR 72 ML/MIN
[2024-03-18 05:51] LABS: PRO BRAIN NATRIURETIC PEPTIDE 11772 PG/ML (0-125)
[2024-03-18 07:44] LABS: BILIRUBIN,URINE NEGATIVE (Neg); CLARITY,URINE CLEAR (Clear); COLOR,URINE YELLOW (Yellow); GLUCOSE, URINE 250 mg/dl (Neg); KETONES,URINE NEGATIVE (Neg); LEUKOCYTE ESTERASE ,URINE NEGATIVE (Neg); NITRITES, URINE NEGATIVE (Neg); OCCULT BLOOD,URINE NEGATIVE (Neg); PH,URINE 5.5 (4.8-8.0); PROTEIN,URINE TRACE mg/dl (Neg)
[2024-03-18 07:46] LABS: UA COLLECTION TYPE VOIDED
[2024-03-18 07:55] LABS: HYALINE CASTS >30 /LPF (NEGATIVE)
[2024-03-18 07:56] LABS: URIC ACID CRYSTALS 1+ /HPF (NEGATIVE)
[2024-03-18 07:57] LABS: BACTERIA,URINE FEW /HPF (Neg); MUCUS STRANDS MANY /LPF (Neg); RBC,URINE 0-2 /HPF (0-2); SQUAMOUS EPITHELIAL CELL,UR FEW /LPF (FEW); WBC,URINE 0-4 /HPF (0-4)
[2024-03-18 08:04] LABS: URINE AMPHETAMINE SCREEN POSITIVE (Neg); URINE BARBITUATE SCREEN NEGATIVE (Neg); URINE BENZODIAZEPINES SCREEN NEGATIVE (Neg); URINE CANNABINOID SCREEN NEGATIVE (Neg); URINE COCAINE SCREEN NEGATIVE (Neg); URINE METHADONE SCREEN NEGATIVE (Neg); URINE OPIATE SCREEN NEGATIVE (Neg); URINE PHENCYCLIDINE SCREEN NEGATIVE (Neg)
[2024-03-18] MEDS ORDERED: potassium Cl 40MEQ/1/2NS 520ml 520 ML IV PRN (09:30)
[2024-03-18] MEDS ORDERED: albuterol 2.5 MG/3 ML nebule NEB PRN (09:30)
[2024-03-18] MEDS ORDERED: potassium Cl 20 mEq SR tablet PO PRN ×2 (09:30)
[2024-03-18] MEDS ORDERED: magnesium sulf-water 4G/100mL 100 ML IV PRN (09:30)
[2024-03-18] MEDS ORDERED: ondansetron/PF 4mg/2ml inj IV PRN (09:30)
[2024-03-18] MEDS ORDERED: magnesium sulf-water 2g/50mL 50 ML IV PRN (09:30)
[2024-03-18 13:26] VITALS: PULSE 103; RESP 16; O2SAT 96
[2024-03-18] MEDS: nicotine 21mg patch - 24 hr TD SCH (16:45)
[2024-03-18] MEDS: docusate sod 100mg capsule PO SCH (20:00)
[2024-03-18] MEDS: K and/or MAG REPLACEMENT MC SCH (20:00)
[2024-03-18] MEDS: ipratropium/albuterol 3ml nebule NEB PRN (20:38)
[2024-03-18] MEDS: budesonide 0.5mg/2ml UD nebule IH SCH (20:38)
[2024-03-18 20:40] VITALS: PULSE 113; RESP 22; O2SAT 94
[2024-03-18 20:47] VITALS: PULSE 117; RESP 20
[2024-03-18] MEDS: furosemide 10 MG/1 ML 10ml inj IV SCH (21:25)
[2024-03-18 22:30] VITALS: BP 100/67; PULSE 111; RESP 17; TEMP 97.7; O2SAT 96
[2024-03-19] VITALS (13 sets, daily range): BP systolic 92–107; BP diastolic 58–73; PULSE 61–109; RESP 16–22; TEMP 97.7–98.2; O2SAT 88–98
[2024-03-19 06:23] LABS: ALANINE AMINOTRANSFERASE 66 U/L (12-78); ALBUMIN 2.5 G/DL (3.4-5.0); ALBUMIN/GLOBULIN RATIO 0.7 (1.1-1.5); ALKALINE PHOSPHATASE 273 IU/L (46-116); ANION GAP 4 (8-16); ASPARTATE AMINO TRANSFERASE 42 U/L (10-37); BILIRUBIN,TOTAL 0.8 MG/DL (0.1-1.0); BLOOD UREA NITROGEN 21 MG/DL (7-18); BUN/CREATININE RATIO 21.6 (10.0-20.0); CALCIUM 8.2 MG/DL (8.5-10.1); CHLORIDE 98 MMOL/L (99-107); CREATININE 0.97 MG/DL (0.60-1.10); GLUCOSE 107 MG/DL (70-104); POTASSIUM 3.5 MMOL/L (3.5-5.1); SODIUM 130 MMOL/L (135-145); TOTAL CARBON DIOXIDE 27.9 MMOL/L (24-32); TOTAL PROTEIN 6.1 G/DL (6.4-8.2); eCRCL 95 ML/MIN; eGFR 80 ML/MIN
[2024-03-19 06:28] LABS: EOSINOPHILS # (AUTO) 0.1 X10'3 (0-0.9); LYMPHOCYTES # (AUTO) 1.5 X10'3 (1.1-4.8); NEUTROPHILS # (AUTO) 6.6 X10'3 (1.8-7.7)
[2024-03-19 06:29] LABS: BASOPHILS # (AUTO) 0.1 X10'3 (0-0.2); BASOPHILS % (AUTO) 0.8 % (0-1); EOSINOPHILS % (AUTO) 1.5 % (0-6); HEMATOCRIT 41.9 % (42.0-52.0); HEMOGLOBIN 13.8 g/dl (14.0-17.9); LYMPHOCYTES % (AUTO) 16.4 % (21-51); MEAN CORPUSCULAR VOLUME 99.9 FL (78-98); MONOCYTES % (AUTO) 11.1 % (2-12); NEUTROPHILS % (AUTO) 70.2 % (42-75); PLATELET COUNT 305 X10'3 (140-440); WHITE BLOOD COUNT 9.4 X10'3 (4.5-11.0)
[2024-03-19] MEDS: losartan 25mg tablet PO SCH (07:31)
[2024-03-19] MEDS: metoprolol succinate 25mg (24-HOUR) SR. Tablet PO SCH (07:32)
[2024-03-19] MEDS: EMPAGLIFLOZIN 10 MG TABLET PO SCH (07:32)
[2024-03-19] MEDS: furosemide 20 MG/2 ML vial IV SCH (12:00)
[2024-03-19] MEDS: spironolactone 25 MG tablet PO SCH (12:03)
[2024-03-19] MEDS: temazepam 15mg capsule PO PRN (20:07)
[2024-03-19] MEDS: enoxaparin 40mg/0.4ml syringe SUBCUT SCH (20:50)
[2024-03-20] VITALS (12 sets, daily range): BP systolic 97–105; BP diastolic 68–71; PULSE 96–112; RESP 16–20; TEMP 97.3–98.7; O2SAT 94–99
[2024-03-20 07:26] LABS: BASOPHILS # (AUTO) 0.1 X10'3 (0-0.2); BASOPHILS % (AUTO) 0.7 % (0-1); EOSINOPHILS # (AUTO) 0.3 X10'3 (0-0.9); EOSINOPHILS % (AUTO) 3.2 % (0-6); HEMOGLOBIN 16.4 g/dl (14.0-17.9); LYMPHOCYTES # (AUTO) 1.6 X10'3 (1.1-4.8); LYMPHOCYTES % (AUTO) 15.1 % (21-51); MEAN CORPUSCULAR HEMOGLOBIN 33.4 PG (27.0-31.0); MEAN CORPUSCULAR HGB CONC 33.5 g/dL (33.0-36.5); MEAN CORPUSCULAR VOLUME 99.9 FL (78-98); MEAN PLATELET VOLUME 9.1 FL (7.4-10.4); MONOCYTES # (AUTO) 1.1 X10'3 (0-0.9); MONOCYTES % (AUTO) 11.1 % (2-12); NEUTROPHILS # (AUTO) 7.1 X10'3 (1.8-7.7); NEUTROPHILS % (AUTO) 69.9 % (42-75); PLATELET COUNT 344 X10'3 (140-440); RED BLOOD COUNT 4.91 X10'6 (4.70-6.10); RED CELL DISTRIBUTION WIDTH 14.3 % (11.5-14.5); WHITE BLOOD COUNT 10.2 X10'3 (4.5-11.0)
[2024-03-20 08:03] LABS: ALANINE AMINOTRANSFERASE 58 U/L (12-78); ALBUMIN 2.5 G/DL (3.4-5.0); ALBUMIN/GLOBULIN RATIO 0.6 (1.1-1.5); ALKALINE PHOSPHATASE 241 IU/L (46-116); ANION GAP 8 (8-16); ASPARTATE AMINO TRANSFERASE 44 U/L (10-37); BILIRUBIN,TOTAL 0.8 MG/DL (0.1-1.0); BLOOD UREA NITROGEN 18 MG/DL (7-18); BUN/CREATININE RATIO 18.8 (10.0-20.0); CALCIUM 8.1 MG/DL (8.5-10.1); CHLORIDE 97 MMOL/L (99-107); CREATININE 0.96 MG/DL (0.60-1.10); GLUCOSE 100 MG/DL (70-104); MAGNESIUM 2.2 MG/DL (1.5-2.4); SODIUM 130 MMOL/L (135-145); TOTAL CARBON DIOXIDE 25.4 MMOL/L (24-32); TOTAL PROTEIN 6.6 G/DL (6.4-8.2); eCRCL 96 ML/MIN; eGFR 81 ML/MIN
[2024-03-20 08:05] LABS: POTASSIUM 4.5 MMOL/L (3.5-5.1)
[2024-03-20] MEDS: furosemide 20 MG/2 ML vial IV SCH (08:19)
[2024-03-20] MEDS: methylPREDNISolone sod succ 125mg/2ml vial IV ONE (19:42)
[2024-03-20] MEDS: methylPREDNISolone sod succ 125mg/2ml vial IV SCH (20:00)
[2024-03-20] MEDS: ipratropium/albuterol 3ml nebule NEB SCH (20:01)
[2024-03-21] VITALS (13 sets, daily range): BP systolic 89–114; BP diastolic 56–71; PULSE 56–112; RESP 16–20; TEMP 97.5–98.2; O2SAT 90–99
[2024-03-21 07:40] LABS: EOSINOPHILS % (AUTO) 0.1 % (0-6); LYMPHOCYTES # (AUTO) 0.7 X10'3 (1.1-4.8); MONOCYTES # (AUTO) 0.2 X10'3 (0-0.9); NEUTROPHILS # (AUTO) 4.8 X10'3 (1.8-7.7)
[2024-03-21 07:41] LABS: BASOPHILS % (AUTO) 0.5 % (0-1); HEMATOCRIT 46.1 % (42.0-52.0); HEMOGLOBIN 15.6 g/dl (14.0-17.9); LYMPHOCYTES % (AUTO) 12.6 % (21-51); MEAN CORPUSCULAR HEMOGLOBIN 33.3 PG (27.0-31.0); MEAN CORPUSCULAR HGB CONC 33.9 g/dL (33.0-36.5); MEAN CORPUSCULAR VOLUME 98.3 FL (78-98); MEAN PLATELET VOLUME 8.9 FL (7.4-10.4); MONOCYTES % (AUTO) 3.7 % (2-12); NEUTROPHILS % (AUTO) 83.1 % (42-75); PLATELET COUNT 397 X10'3 (140-440); RED BLOOD COUNT 4.69 X10'6 (4.70-6.10); RED CELL DISTRIBUTION WIDTH 14.1 % (11.5-14.5); WHITE BLOOD COUNT 5.8 X10'3 (4.5-11.0)
[2024-03-21 08:23] LABS: ALANINE AMINOTRANSFERASE 54 U/L (12-78); ALBUMIN 2.5 G/DL (3.4-5.0); ALBUMIN/GLOBULIN RATIO 0.6 (1.1-1.5); ALKALINE PHOSPHATASE 223 IU/L (46-116); ANION GAP 7 (8-16); ASPARTATE AMINO TRANSFERASE 28 U/L (10-37); BILIRUBIN,TOTAL 0.6 MG/DL (0.1-1.0); BLOOD UREA NITROGEN 22 MG/DL (7-18); BUN/CREATININE RATIO 24.7 (10.0-20.0); CALCIUM 8.2 MG/DL (8.5-10.1); CHLORIDE 95 MMOL/L (99-107); CREATININE 0.89 MG/DL (0.60-1.10); GLUCOSE 145 MG/DL (70-104); MAGNESIUM 2.2 MG/DL (1.5-2.4); POTASSIUM 4.1 MMOL/L (3.5-5.1); SODIUM 128 MMOL/L (135-145); TOTAL CARBON DIOXIDE 26.2 MMOL/L (24-32); TOTAL PROTEIN 6.8 G/DL (6.4-8.2); eCRCL 104 ML/MIN; eGFR 89 ML/MIN
[2024-03-21] MEDS: furosemide 20 MG/2 ML vial IV ONE (09:58)
[2024-03-22] VITALS (10 sets, daily range): BP systolic 92–138; BP diastolic 55–77; PULSE 50–113; RESP 17–20; TEMP 97.4–98.1; O2SAT 92–100
[2024-03-22 07:56] LABS: BASOPHILS % (AUTO) 0.1 % (0-1); EOSINOPHILS % (AUTO) 0.1 % (0-6); HEMATOCRIT 42.6 % (42.0-52.0); HEMOGLOBIN 14.3 g/dl (14.0-17.9); LYMPHOCYTES # (AUTO) 0.9 X10'3 (1.1-4.8); LYMPHOCYTES % (AUTO) 5.6 % (21-51); MEAN CORPUSCULAR HEMOGLOBIN 33.3 PG (27.0-31.0); MEAN CORPUSCULAR HGB CONC 33.7 g/dL (33.0-36.5); MEAN CORPUSCULAR VOLUME 98.8 FL (78-98); MEAN PLATELET VOLUME 9.3 FL (7.4-10.4); MONOCYTES # (AUTO) 0.9 X10'3 (0-0.9); MONOCYTES % (AUTO) 5.5 % (2-12); NEUTROPHILS # (AUTO) 13.9 X10'3 (1.8-7.7); NEUTROPHILS % (AUTO) 88.7 % (42-75); PLATELET COUNT 444 X10'3 (140-440); RED BLOOD COUNT 4.31 X10'6 (4.70-6.10); WHITE BLOOD COUNT 15.7 X10'3 (4.5-11.0)
[2024-03-22 08:12] LABS: ALANINE AMINOTRANSFERASE 49 U/L (12-78); ALBUMIN 2.6 G/DL (3.4-5.0); ALBUMIN/GLOBULIN RATIO 0.7 (1.1-1.5); ALKALINE PHOSPHATASE 190 IU/L (46-116); ANION GAP 9 (8-16); ASPARTATE AMINO TRANSFERASE 28 U/L (10-37); BILIRUBIN,TOTAL 0.3 MG/DL (0.1-1.0); BLOOD UREA NITROGEN 22 MG/DL (7-18); BUN/CREATININE RATIO 27.8 (10.0-20.0); CALCIUM 8.1 MG/DL (8.5-10.1); CHLORIDE 94 MMOL/L (99-107); CREATININE 0.79 MG/DL (0.60-1.10); GLUCOSE 145 MG/DL (70-104); MAGNESIUM 2.2 MG/DL (1.5-2.4); POTASSIUM 4.1 MMOL/L (3.5-5.1); SODIUM 128 MMOL/L (135-145); TOTAL PROTEIN 6.6 G/DL (6.4-8.2); eCRCL 117 ML/MIN; eGFR > 90 ML/MIN
[2024-03-22] MEDS ORDERED: losartan 25mg tablet PO SCH ×2 (10:28)
[2024-03-22] MEDS: losartan 25mg tablet PO SCH (11:53)
[2024-03-22] MEDS: CefTRIAXone/D5W-Rocephin 1gm 50 ML IV ONE (11:54)
[2024-03-22] MEDS: furosemide 20 MG/2 ML vial IV SCH (11:57)
[2024-03-22] MEDS: LORazepam 2 mg/ml vial IV PRN (13:49)
[2024-03-23] VITALS (7 sets, daily range): BP systolic 98–121; BP diastolic 57–74; PULSE 51–112; RESP 16–20; TEMP 97.6–98.9; O2SAT 94–100
[2024-03-23 06:14] LABS: BASOPHILS % (AUTO) 0.2 % (0-1); EOSINOPHILS % (AUTO) 0 % (0-6); HEMATOCRIT 46.3 % (42.0-52.0); HEMOGLOBIN 15.4 g/dl (14.0-17.9); LYMPHOCYTES # (AUTO) 0.9 X10'3 (1.1-4.8); LYMPHOCYTES % (AUTO) 5.6 % (21-51); MEAN CORPUSCULAR HEMOGLOBIN 33.1 PG (27.0-31.0); MEAN CORPUSCULAR HGB CONC 33.4 g/dL (33.0-36.5); MEAN CORPUSCULAR VOLUME 99.3 FL (78-98); MEAN PLATELET VOLUME 8.6 FL (7.4-10.4); MONOCYTES # (AUTO) 0.8 X10'3 (0-0.9); MONOCYTES % (AUTO) 4.8 % (2-12); NEUTROPHILS # (AUTO) 14.1 X10'3 (1.8-7.7); NEUTROPHILS % (AUTO) 89.4 % (42-75); PLATELET COUNT 492 X10'3 (140-440); RED BLOOD COUNT 4.66 X10'6 (4.70-6.10); RED CELL DISTRIBUTION WIDTH 14.1 % (11.5-14.5); WHITE BLOOD COUNT 15.8 X10'3 (4.5-11.0)
[2024-03-23 06:36] LABS: ALANINE AMINOTRANSFERASE 78 U/L (12-78); ALBUMIN 2.9 G/DL (3.4-5.0); ALBUMIN/GLOBULIN RATIO 0.7 (1.1-1.5); ALKALINE PHOSPHATASE 191 IU/L (46-116); ANION GAP 7 (8-16); ASPARTATE AMINO TRANSFERASE 43 U/L (10-37); BILIRUBIN,TOTAL 0.4 MG/DL (0.1-1.0); BLOOD UREA NITROGEN 26 MG/DL (7-18); CALCIUM 8.5 MG/DL (8.5-10.1); CHLORIDE 95 MMOL/L (99-107); CREATININE 0.84 MG/DL (0.60-1.10); GLUCOSE 146 MG/DL (70-104); MAGNESIUM 2.4 MG/DL (1.5-2.4); POTASSIUM 4.8 MMOL/L (3.5-5.1); SODIUM 128 MMOL/L (135-145); TOTAL CARBON DIOXIDE 26.3 MMOL/L (24-32); TOTAL PROTEIN 6.9 G/DL (6.4-8.2); eCRCL 110 ML/MIN; eGFR > 90 ML/MIN
[2024-03-23] MEDS: CefTRIAXone/D5W-Rocephin 1gm 50 ML IV SCH (09:26)
[2024-03-23] MEDS: PARoxetine 20mg tablet PO ONE (16:35)
[2024-03-23] MEDS: sacubitril/valsartan 24mg-26mg tablet PO SCH (20:27)
[2024-03-23] MEDS: amiodarone 200mg tablet PO SCH (20:29)
[2024-03-24] VITALS (8 sets, daily range): BP systolic 91–100; BP diastolic 64–65; PULSE 51–111; RESP 16–26; TEMP 97.1; O2SAT 95–98
[2024-03-24 06:22] LABS: BASOPHILS % (AUTO) 0.2 % (0-1); EOSINOPHILS % (AUTO) 0 % (0-6); HEMATOCRIT 43.1 % (42.0-52.0); HEMOGLOBIN 14.3 g/dl (14.0-17.9); LYMPHOCYTES # (AUTO) 0.5 X10'3 (1.1-4.8); MEAN CORPUSCULAR HEMOGLOBIN 32.8 PG (27.0-31.0); MEAN CORPUSCULAR VOLUME 99.3 FL (78-98); MEAN PLATELET VOLUME 8.3 FL (7.4-10.4); MONOCYTES # (AUTO) 0.6 X10'3 (0-0.9); MONOCYTES % (AUTO) 4.7 % (2-12); NEUTROPHILS # (AUTO) 11.4 X10'3 (1.8-7.7); NEUTROPHILS % (AUTO) 91.1 % (42-75); PLATELET COUNT 474 X10'3 (140-440); RED BLOOD COUNT 4.35 X10'6 (4.70-6.10); RED CELL DISTRIBUTION WIDTH 14.1 % (11.5-14.5); WHITE BLOOD COUNT 12.6 X10'3 (4.5-11.0)
[2024-03-24 06:49] LABS: ALANINE AMINOTRANSFERASE 82 U/L (12-78); ALBUMIN 2.3 G/DL (3.4-5.0); ALBUMIN/GLOBULIN RATIO 0.6 (1.1-1.5); ALKALINE PHOSPHATASE 148 IU/L (46-116); ANION GAP 5 (8-16); ASPARTATE AMINO TRANSFERASE 34 U/L (10-37); BILIRUBIN,TOTAL 0.3 MG/DL (0.1-1.0); BLOOD UREA NITROGEN 18 MG/DL (7-18); BUN/CREATININE RATIO 19.1 (10.0-20.0); CALCIUM 7.9 MG/DL (8.5-10.1); CHLORIDE 96 MMOL/L (99-107); CREATININE 0.94 MG/DL (0.60-1.10); GLUCOSE 162 MG/DL (70-104); POTASSIUM 4.1 MMOL/L (3.5-5.1); PRO BRAIN NATRIURETIC PEPTIDE 10646 PG/ML (0-125); SODIUM 129 MMOL/L (135-145); TOTAL CARBON DIOXIDE 27.7 MMOL/L (24-32); eCRCL 98 ML/MIN; eGFR 83 ML/MIN
[2024-03-24] MEDS ORDERED: EMPA10TA PO (10:55)
[2024-03-24] MEDS ORDERED: PRED20TA PO (10:55)
[2024-03-24] MEDS ORDERED: SACU1TAB PO (10:55)
[2024-03-24] MEDS ORDERED: PARO20TA6 PO (10:55)
[2024-03-24] MEDS ORDERED: NICO-687 TD (10:55)
[2024-03-24] MEDS ORDERED: BUDE180A INH (10:55)
[2024-03-24] MEDS ORDERED: ALBU8HFA PO (10:55)
[2024-03-24] MEDS ORDERED: METO-395 PO (10:55)
[2024-03-24] MEDS ORDERED: AMI200T PO (10:55)
[2024-03-24] MEDS: PARoxetine 20mg tablet PO SCH (12:45)
== END 2024-03-24 14:52 | disposition home or self-care (01) | DRG 812 ==
LOC: ER 03:06 → ED HOLD 09:35 → ORTHO 4S 22:30
PROVIDERS: ADMIT Family Medicine; ATTEND Family Medicine
DX: T43.651A Poisoning by methamphetamines accidental (unintentional), initial encounter (principal); I50.23 Acute on chronic systolic (congestive) heart failure; I21.A1 Myocardial infarction type 2; E87.0 Hyperosmolality and hypernatremia; E87.1 Hypo-osmolality and hyponatremia; J44.1 Chronic obstructive pulmonary disease with (acute) exacerbation; I42.0 Dilated cardiomyopathy; I47.20 Ventricular tachycardia, unspecified; F41.9 Anxiety disorder, unspecified; F17.210 Nicotine dependence, cigarettes, uncomplicated; F15.10 Other stimulant abuse, uncomplicated; G89.29 Other chronic pain; I25.2 Old myocardial infarction; Z88.5 Allergy status to narcotic agent; Z88.1 Allergy status to other antibiotic agents; Z88.8 Allergy status to other drugs, medicaments and biological substances; Y92.89 Other specified places as the place of occurrence of the external cause; Z83.3 Family history of diabetes mellitus; Z88.6 Allergy status to analgesic agent; Z90.81 Acquired absence of spleen; Z59.00 Homelessness unspecified; Z79.82 Long term (current) use of aspirin; Z79.84 Long term (current) use of oral hypoglycemic drugs; Z79.899 Other long term (current) drug therapy
CPT/HCPCS: 36415; 71045; 80053; 80305; 81001; 83735; 83880; 84484; 85025; 93005; 94640; 94760; 99285; A4615; A6258; G0378; J0696; J1650; J1940; J2060; J2919

== ENCOUNTER 2024-03-25 00:04 | Inpatient (IN) | payer MEDICAID ==
[2024-03-25] VITALS (15 sets, daily range): BP systolic 81–110; BP diastolic 35–78; PULSE 78–95; RESP 17–28; O2SAT 92–98
[~2024-03-25] VITALS: Ht 188 cm; Wt 93.5 kg
[~2024-03-25 00:04] MED LIST changes: +ALBU8HFA PO; +AMI200T PO; +BUDE180A5 INH; -CARV3.122 PO; -COR3.125T PO; -DAPA10TA PO; +EMPA10TA PO; -FURO20TA4 PO; -LOSA25TA41 PO; +METO-395 PO; -MIDO5TAB4 PO; -NICO-631 TD; -NICO-631 TOP; +NICO-687 TD; +PARO20TA6 PO; +PRED20TA PO; +SACU1TAB PO
[2024-03-25] MEDS: normal saline 1000ML IV soln IVB ONE ×3 (00:29→14:15)
[2024-03-25 00:40] LABS: BASOPHILS % (AUTO) 0.2 % (0-1); EOSINOPHILS % (AUTO) 0 % (0-6); HEMOGLOBIN 14.7 g/dl (14.0-17.9); LYMPHOCYTES # (AUTO) 0.8 X10'3 (1.1-4.8); LYMPHOCYTES % (AUTO) 4.9 % (21-51); MEAN CORPUSCULAR HEMOGLOBIN 33.1 PG (27.0-31.0); MEAN CORPUSCULAR HGB CONC 33.5 g/dL (33.0-36.5); MEAN CORPUSCULAR VOLUME 98.8 FL (78-98); MONOCYTES # (AUTO) 0.8 X10'3 (0-0.9); MONOCYTES % (AUTO) 4.6 % (2-12); NEUTROPHILS # (AUTO) 15.1 X10'3 (1.8-7.7); NEUTROPHILS % (AUTO) 90.3 % (42-75); PLATELET COUNT 422 X10'3 (140-440); RED BLOOD COUNT 4.45 X10'6 (4.70-6.10); RED CELL DISTRIBUTION WIDTH 14.1 % (11.5-14.5); WHITE BLOOD COUNT 16.8 X10'3 (4.5-11.0)
[2024-03-25 00:48] LABS: D-DIMER 0.81 MG/L FEU (0-0.50)
[2024-03-25 00:52] LABS: ALANINE AMINOTRANSFERASE 162 U/L (12-78); ALBUMIN 2.8 G/DL (3.4-5.0); ALBUMIN/GLOBULIN RATIO 0.8 (1.1-1.5); ALKALINE PHOSPHATASE 147 IU/L (46-116); ANION GAP 8 (8-16); ASPARTATE AMINO TRANSFERASE 99 U/L (10-37); BILIRUBIN,TOTAL 0.4 MG/DL (0.1-1.0); BLOOD UREA NITROGEN 30 MG/DL (7-18); BUN/CREATININE RATIO 27.3 (10.0-20.0); CALCIUM 8.3 MG/DL (8.5-10.1); CHLORIDE 98 MMOL/L (99-107); GLUCOSE 179 MG/DL (70-104); POTASSIUM 4.7 MMOL/L (3.5-5.1); SODIUM 129 MMOL/L (135-145); TOTAL CARBON DIOXIDE 23.4 MMOL/L (24-32); TOTAL PROTEIN 6.3 G/DL (6.4-8.2); eCRCL 88 ML/MIN; eGFR 69 ML/MIN
[2024-03-25 01:01] LABS: PRO BRAIN NATRIURETIC PEPTIDE 18145 PG/ML (0-125)
[2024-03-25 01:10] LABS: BILIRUBIN,URINE NEGATIVE (Neg); CLARITY,URINE CLEAR (Clear); COLOR,URINE YELLOW (Yellow); GLUCOSE, URINE >=1000 mg/dl (Neg); KETONES,URINE TRACE mg/dl (Neg); LEUKOCYTE ESTERASE ,URINE NEGATIVE (Neg); NITRITES, URINE NEGATIVE (Neg); OCCULT BLOOD,URINE TRACE-INTACT (Neg); PROTEIN,URINE NEGATIVE (Neg); UROBILINOGEN,URINE 0.2 E.U/dL (0.2-1.0)
[2024-03-25 01:12] LABS: UA COLLECTION TYPE URINAL
[2024-03-25 01:18] LABS: URINE AMPHETAMINE SCREEN NEGATIVE (Neg); URINE BARBITUATE SCREEN NEGATIVE (Neg); URINE BENZODIAZEPINES SCREEN NEGATIVE (Neg); URINE CANNABINOID SCREEN NEGATIVE (Neg); URINE COCAINE SCREEN NEGATIVE (Neg); URINE METHADONE SCREEN NEGATIVE (Neg); URINE OPIATE SCREEN NEGATIVE (Neg); URINE PHENCYCLIDINE SCREEN NEGATIVE (Neg)
[2024-03-25 01:19] LABS: BACTERIA,URINE FEW /HPF (Neg); SQUAMOUS EPITHELIAL CELL,UR FEW /LPF (FEW); WBC,URINE 0-4 /HPF (0-4)
[2024-03-25] MEDS: heparin 10,000 units/1 ML INJ IV ONE (01:19)
[2024-03-25 01:23] LABS: APTT 22 SECONDS (22-32); PROTHROMBIN TIME 10.5 SECONDS (9.0-12.0)
[2024-03-25] MEDS ORDERED: ketamine 50 mg/ml 10ml vial IV ONE (01:35)
[2024-03-25] MEDS: heparin 25,000 UNIT/250ml bag 250 ML IV PRN (01:41)
[2024-03-25] MEDS: calcium gluconate inj. 3 GM in normal saline 100ml IV soln 70 ML IV ONE (02:07)
[2024-03-25] MEDS: ketamine 50mg/5ml syringe IV ONE ×2 (02:07→04:43)
[2024-03-25] MEDS ORDERED: iohexol 350MG/ML 100ml bottle IV ONE (02:26)
[2024-03-25] MEDS: MESSAGE TO NURSING IV ONE ×3 (03:19→19:00)
[2024-03-25] MEDS ORDERED: acetaminophen 325mg tablet PO PRN ×2 (04:35→16:15)
[2024-03-25] MEDS ORDERED: magnesium sulf-water 4G/100mL 100 ML IV PRN (04:35)
[2024-03-25] MEDS ORDERED: ondansetron/PF 4mg/2ml inj IV PRN ×2 (04:35→16:15)
[2024-03-25] MEDS ORDERED: potassium Cl 20 mEq SR tablet PO PRN ×2 (04:35)
[2024-03-25] MEDS ORDERED: magnesium hydroxide 30ml (MOM) UD suspension PO PRN ×2 (04:35→16:15)
[2024-03-25] MEDS ORDERED: potassium Cl 40MEQ/1/2NS 520ml 520 ML IV PRN (04:35)
[2024-03-25] MEDS ORDERED: magnesium sulf-water 2g/50mL 50 ML IV PRN (04:35)
[2024-03-25] MEDS ORDERED: mag hydrox/Alum hydrox/simeth 30ml oral suspension PO PRN (04:35)
[2024-03-25] MEDS ORDERED: magnesium Cl slow-release 64mg tablet PO PRN (04:35)
[2024-03-25] MEDS: NORepinephrine 8mg/ 250ml NS 250 ML IV SCH (05:35)
[2024-03-25 07:17] LABS: ABG BASE EXCESS -8.9 mmol/L (-2.0-3.0); ABG HCO3 13.7 mmol/L (21.0-28.0); ABG OXYGEN SATURATION 98.6 % (94.0-98.0); ABG PCO2 (T) 22.9 mmHg (35.0-48.0); ABG PH (T) 7.393 (7.350-7.450); ABG PO2 (T) 129.7 mmHg (83.0-108.0); ALLEN'S TEST POSITIVE; FCOHb 0.3 % (0.5-1.5); FHHb 1.4 % (0.0-5.0); FLOW 3 L/min; FMetHb 0.3 % (0.0-1.5); MODE NASAL CANNULA; PATIENT TEMPERATURE 36.8; TOTAL HEMOGLOBIN 15.7 G/dl (13.5-17.5)
[2024-03-25] MEDS: budesonide 0.5mg/2ml UD nebule IH SCH (07:22)
[2024-03-25] MEDS: LORazepam 2 mg/ml vial IV ONE ×3 (07:26→09:30)
[2024-03-25] MEDS: methylPREDNISolone sod succ 125mg/2ml vial IV ONE (07:33)
[2024-03-25] MEDS: CefTRIAXone 2gm/D5W 50ml BAG 50 ML IV ONE (07:36)
[2024-03-25] MEDS: metoprolol succinate 25mg (24-HOUR) SR. Tablet PO SCH (08:00)
[2024-03-25] MEDS: PARoxetine 20mg tablet PO SCH (08:00)
[2024-03-25] MEDS: aspirin 81mg, enteric-coated 1 TAB TABLET.DR PO SCH (08:00)
[2024-03-25] MEDS: EMPAGLIFLOZIN 10 MG TABLET PO SCH (08:00)
[2024-03-25] MEDS: atorvastatin 20mg tablet PO SCH (08:00)
[2024-03-25] MEDS: nicotine 21mg patch - 24 hr TD SCH (08:00)
[2024-03-25] MEDS: amiodarone 200mg tablet PO SCH (08:00)
[2024-03-25] MEDS: spironolactone 25 MG tablet PO SCH (08:00)
[2024-03-25] MEDS ORDERED: rocuronium 10mg/ml inj IV ONE (08:00)
[2024-03-25] MEDS: K and/or MAG REPLACEMENT MC SCH (08:00)
[2024-03-25] MEDS: docusate sod 100mg capsule PO SCH (08:00)
[2024-03-25] MEDS: sacubitril/valsartan 24mg-26mg tablet PO SCH (08:00)
[2024-03-25] MEDS ORDERED: enoxaparin 40mg/0.4ml syringe SUBCUT SCH (08:00)
[2024-03-25] MEDS: diphenhydrAMINE 50 mg/ml inj IV ONE (09:07)
[2024-03-25] MEDS: haloperidol lactate 5mg/ml inj IM ONE (09:07)
[2024-03-25] MEDS: glycopyrrolate 0.2mg/ml inj IV ONE (09:07)
[2024-03-25] MEDS: phenoBARBITAL sod 130mg/ml inj. IV ONE (09:50)
[2024-03-25 10:17] LABS: ALANINE AMINOTRANSFERASE 176 U/L (12-78); ALBUMIN/GLOBULIN RATIO 0.8 (1.1-1.5); ALKALINE PHOSPHATASE 152 IU/L (46-116); ANION GAP 9 (8-16); ASPARTATE AMINO TRANSFERASE 78 U/L (10-37); BILIRUBIN,TOTAL 1.1 MG/DL (0.1-1.0); BLOOD UREA NITROGEN 32 MG/DL (7-18); BUN/CREATININE RATIO 27.6 (10.0-20.0); CALCIUM 8.9 MG/DL (8.5-10.1); CHLORIDE 99 MMOL/L (99-107); CREATININE 1.16 MG/DL (0.60-1.10); GLUCOSE 176 MG/DL (70-104); POTASSIUM 5.2 MMOL/L (3.5-5.1); SODIUM 133 MMOL/L (135-145); TOTAL PROTEIN 6.6 G/DL (6.4-8.2); eCRCL 84 ML/MIN; eGFR 65 ML/MIN
[2024-03-25 10:22] LABS: MAGNESIUM 2.6 MG/DL (1.5-2.4)
[2024-03-25] MEDS: albumin (human) 25% 100 ML IV solution IV ONE (11:55)
[2024-03-25] MEDS: azithromycin/NS 500mg/250ml 250 ML IV ONE (12:25)
[2024-03-25] MEDS: ziprasidone IM 20mg inj **IM only IM ONE (13:20)
[2024-03-25] MEDS: ketamine 50 mg/ml 10ml vial IV ONE (13:46)
[2024-03-25] MEDS: ziprasidone IM 20mg inj **IM only IM SCH (14:00)
[2024-03-25 14:36] LABS: ABG BASE EXCESS -15.9 mmol/L (-2.0-3.0); ABG HCO3 13.9 mmol/L (21.0-28.0); ABG OXYGEN SATURATION 99.8 % (94.0-98.0); ABG PCO2 (T) 47.8 mmHg (35.0-48.0); ABG PH (T) 7.083 (7.350-7.450); ABG PO2 (T) 496.6 mmHg (83.0-108.0); FCOHb 0.3 % (0.5-1.5); FHHb 0.2 % (0.0-5.0); FMetHb 0.1 % (0.0-1.5); FO2Hb 99.4 % (94.0-98.0); MODE PRVC; PEEP 5 cm H2O; RESPIRATORY RATE 16 b/min; TIDAL VOLUME 450 mL; TOTAL HEMOGLOBIN 15.7 G/dl (13.5-17.5)
[2024-03-25] MEDS ORDERED: fentaNYL/PF 50MCG/1 ML 2ML syringe IV PRN (14:50)
[2024-03-25] MEDS ORDERED: midazolam 1 mg/ML 2ml injection IV PRN (14:50)
[2024-03-25 15:54] LABS: BASOPHILS % (AUTO) 0.1 % (0-1); EOSINOPHILS % (AUTO) 0.1 % (0-6); HEMATOCRIT 48.8 % (42.0-52.0); HEMOGLOBIN 15.4 g/dl (14.0-17.9); LYMPHOCYTES # (AUTO) 0.9 X10'3 (1.1-4.8); MEAN CORPUSCULAR HEMOGLOBIN 32.2 PG (27.0-31.0); MEAN CORPUSCULAR HGB CONC 31.5 g/dL (33.0-36.5); MEAN CORPUSCULAR VOLUME 102.2 FL (78-98); MEAN PLATELET VOLUME 8.2 FL (7.4-10.4); MONOCYTES # (AUTO) 0.6 X10'3 (0-0.9); MONOCYTES % (AUTO) 4.3 % (2-12); NEUTROPHILS # (AUTO) 13.5 X10'3 (1.8-7.7); NEUTROPHILS % (AUTO) 89.5 % (42-75); PLATELET COUNT 397 X10'3 (140-440); RED BLOOD COUNT 4.78 X10'6 (4.70-6.10); RED CELL DISTRIBUTION WIDTH 14.7 % (11.5-14.5); WHITE BLOOD COUNT 15.1 X10'3 (4.5-11.0)
[2024-03-25] MEDS: midazolam 100mg in NS 100ml 100 ML IV SCH (15:55)
[2024-03-25] MEDS: FENTANYL-0.9 % NACL/PF 100 ML IV SCH (15:56)
[2024-03-25] MEDS: DOBUTamine-DoBUTrex 500mg/D5W 250 ML IV SCH (16:03)
[2024-03-25] MEDS: sodium bicarbonate (8.4%) 1 mEq/ml syringe IV ONE (16:25)
[2024-03-25] MEDS: LidoCAINE 2% Topical Jelly 11mL syringe (UROJET) TOP ONE (16:44)
[2024-03-25] MEDS: sodium bicarbonate 1meq/ml inj 150 ML in dextrose 5%-water 1,000 ML IV SCH (17:29)
[2024-03-25] MEDS: albuterol 2.5 MG/3 ML nebule NEB PRN (19:14)
[2024-03-25 19:28] LABS: OSMOLALITY 300 MOSM/K (280-300)
[2024-03-25] MEDS ORDERED: NORepinephrine 32mg/250mL bag 250 ML IV SCH (19:35)
[2024-03-25 19:55] LABS: ETHANOL < 10 MG/DL (<10)
[2024-03-25] MEDS: NORMAL SALINE IV SCH (20:14)
[2024-03-25] MEDS: VASOPRESSIN IV SCH (20:14)
[2024-03-25] MEDS: NORepinephrine 32 MG in normal saline 250ml IV soln 218 ML IV SCH (20:14)
[2024-03-25] MEDS ORDERED: atorvastatin 20mg tablet NG SCH (20:43)
[2024-03-25] MEDS ORDERED: EMPAGLIFLOZIN 10 MG TABLET NG SCH (20:43)
[2024-03-25] MEDS ORDERED: magnesium hydroxide 30ml (MOM) UD suspension NG PRN ×2 (20:44)
[2024-03-25] MEDS ORDERED: spironolactone 25 MG tablet NG SCH (20:45)
[2024-03-25] MEDS ORDERED: PARoxetine 20mg tablet NG SCH (20:46)
[2024-03-25] MEDS ORDERED: acetaminophen 325mg/10.15ml oral unit dose solution PO PRN (20:50)
[2024-03-25] MEDS ORDERED: acetaminophen 325mg/10.15ml oral unit dose solution NG PRN (20:51)
[2024-03-25] MEDS ORDERED: sacubitril/valsartan 24mg-26mg tablet NG SCH (20:52)
[2024-03-26] VITALS (70 sets, daily range): BP systolic 95–131; BP diastolic 45–89; PULSE 83–107; RESP 16–26; O2SAT 92–100
[2024-03-26 02:42] LABS: BASOPHILS # (AUTO) 0.1 X10'3 (0-0.2); BASOPHILS % (AUTO) 0.4 % (0-1); EOSINOPHILS % (AUTO) 0 % (0-6); HEMATOCRIT 48.3 % (42.0-52.0); HEMOGLOBIN 15.6 g/dl (14.0-17.9); INR 1.6 INR; LYMPHOCYTES # (AUTO) 0.2 X10'3 (1.1-4.8); LYMPHOCYTES % (AUTO) 0.9 % (21-51); MEAN CORPUSCULAR HEMOGLOBIN 32.4 PG (27.0-31.0); MEAN CORPUSCULAR HGB CONC 32.2 g/dL (33.0-36.5); MEAN CORPUSCULAR VOLUME 100.4 FL (78-98); MEAN PLATELET VOLUME 8.7 FL (7.4-10.4); MONOCYTES # (AUTO) 1.4 X10'3 (0-0.9); MONOCYTES % (AUTO) 5.6 % (2-12); NEUTROPHILS # (AUTO) 23.8 X10'3 (1.8-7.7); NEUTROPHILS % (AUTO) 93.1 % (42-75); PLATELET COUNT 394 X10'3 (140-440); PROTHROMBIN TIME 16.1 SECONDS (9.0-12.0); RED BLOOD COUNT 4.81 X10'6 (4.70-6.10); RED CELL DISTRIBUTION WIDTH 14.4 % (11.5-14.5)
[2024-03-26 02:50] LABS: WHITE BLOOD COUNT 25.6 X10'3 (4.5-11.0)
[2024-03-26 02:54] LABS: ALBUMIN 2.4 G/DL (3.4-5.0); ALBUMIN/GLOBULIN RATIO 0.8 (1.1-1.5); ALKALINE PHOSPHATASE 119 IU/L (46-116); ANION GAP 13 (8-16); BILIRUBIN,TOTAL 1.2 MG/DL (0.1-1.0); BLOOD UREA NITROGEN 49 MG/DL (7-18); BUN/CREATININE RATIO 21.7 (10.0-20.0); CALCIUM 6.5 MG/DL (8.5-10.1); CHLORIDE 96 MMOL/L (99-107); CHOL/HDL RATIO 3.2 (0.00-4.99); CHOLESTEROL 111 MG/DL (0-200); CREATININE 2.26 MG/DL (0.60-1.10); GLUCOSE 187 MG/DL (70-104); HDL CHOLESTEROL 35 MG/DL (35-60); LDL CHOLESTEROL 74 MG/DL (50-100); MAGNESIUM 2.3 MG/DL (1.5-2.4); SODIUM 129 MMOL/L (135-145); TOTAL CARBON DIOXIDE 20.3 MMOL/L (24-32); TOTAL PROTEIN 5.6 G/DL (6.4-8.2); TRIGLYCERIDES 95 MG/DL (20-135); eCRCL 43 ML/MIN; eGFR 30 ML/MIN
[2024-03-26 03:15] LABS: PLATELET ESTIMATE NORMAL; TOTAL CELLS COUNTED 100
[2024-03-26] MEDS: heparin 10,000 units/1 ML INJ IV PRN (03:16)
[2024-03-26] MEDS: MESSAGE TO NURSING IV ONE ×5 (03:27→21:07)
[2024-03-26 03:45] LABS: ABG BASE EXCESS -9.4 mmol/L (-2.0-3.0); ABG HCO3 16.2 mmol/L (21.0-28.0); ABG OXYGEN SATURATION 98.9 % (94.0-98.0); ABG PCO2 (T) 36.7 mmHg (35.0-48.0); ABG PH (T) 7.268 (7.350-7.450); ABG PO2 (T) 142.3 mmHg (83.0-108.0); FCOHb 0.7 % (0.5-1.5); FHHb 1.1 % (0.0-5.0); FMetHb 0.2 % (0.0-1.5); MODE PRVC; PATIENT TEMPERATURE 38.1; PEEP 5 cm H2O; RESPIRATORY RATE 22 b/min; TIDAL VOLUME 450 mL; TOTAL HEMOGLOBIN 16.5 G/dl (13.5-17.5)
[2024-03-26 04:18] LABS: ALANINE AMINOTRANSFERASE 3895 U/L (12-78); PHOSPHORUS 10.6 MG/DL (2.3-4.5)
[2024-03-26 04:22] LABS: ASPARTATE AMINO TRANSFERASE 4195 U/L (10-37)
[2024-03-26] MEDS: ringers solution, lactated 500ml IV solution IV ONE (04:23)
[2024-03-26] MEDS: SODIUM ZIRCONIUM CYCLOSILICATE 10 GM POWD.PACK PO ONE (04:24)
[2024-03-26] MEDS: acetaminophen 325mg/10.15ml oral unit dose solution NG PRN (04:35)
[2024-03-26] MEDS: dextrose 50%-water 50ml dispensing syringe IV ONE (04:46)
[2024-03-26] MEDS: insulin regular, human 10 units/0.1 ml syringe IV ONE (04:48)
[2024-03-26] MEDS: calcium chloride 100 MG/1 ML inj IV ONE (04:48)
[2024-03-26] MEDS: aspirin 81mg tab.chew NG SCH (08:00)
[2024-03-26 08:39] LABS: ALBUMIN 2.5 G/DL (3.4-5.0); ANION GAP 14 (8-16); BLOOD UREA NITROGEN 56 MG/DL (7-18); CALCIUM 7.3 MG/DL (8.5-10.1); CHLORIDE 99 MMOL/L (99-107); CREATININE 2.43 MG/DL (0.60-1.10); GLUCOSE 178 MG/DL (70-104); POTASSIUM 5.5 MMOL/L (3.5-5.1); SODIUM 134 MMOL/L (135-145); TOTAL CARBON DIOXIDE 21.4 MMOL/L (24-32); eCRCL 40 ML/MIN; eGFR 28 ML/MIN
[2024-03-26] MEDS: VANCOMYCIN 1GM 200ML H20 (PEG) 200 ML IV SCH (09:38)
[2024-03-26] MEDS: cefepime 2g/NS 100ml ADVANTAGE 100 ML IV SCH (09:39)
[2024-03-26] MEDS: amiodarone 200mg tablet NG SCH (09:39)
[2024-03-26] MEDS: docusate sodium 100mg/10ml UD cup NG SCH (09:40)
[2024-03-26] MEDS: calcium acetate 667mg (PhosLO) capsule PO SCH (12:11)
[2024-03-26] MEDS ORDERED: calcium acetate 667mg (PhosLO) capsule NG SCH (13:00)
[2024-03-26 13:10] LABS: PREALBUMIN 28.3 MG/DL (19-36)
[2024-03-26] MEDS ORDERED: mag hydrox/Alum hydrox/simeth 30ml oral suspension NG PRN (13:27)
[2024-03-26] MEDS ORDERED: POTASSIUM CHLORIDE 20 MEQ/15 ML oral solution NG PRN ×2 (13:28)
[2024-03-26] MEDS: insulin regular, human U-100 10ml vial - multi-dose SQ SCH (14:00)
[2024-03-26] MEDS: sodium polystyrene sulfonate 15gm/60ml oral suspension NG SCH (14:10)
[2024-03-26 14:26] LABS: ALBUMIN 2.5 G/DL (3.4-5.0); ANION GAP 13 (8-16); BLOOD UREA NITROGEN 56 MG/DL (7-18); BUN/CREATININE RATIO 23.5 (10.0-20.0); CHLORIDE 99 MMOL/L (99-107); CREATININE 2.38 MG/DL (0.60-1.10); GLUCOSE 163 MG/DL (70-104); SODIUM 136 MMOL/L (135-145); TOTAL CARBON DIOXIDE 24.5 MMOL/L (24-32); eCRCL 41 ML/MIN; eGFR 29 ML/MIN
[2024-03-26 14:31] LABS: APTT 42 SECONDS (22-32)
[2024-03-26 15:08] LABS: ABG BASE EXCESS -5.7 mmol/L (-2.0-3.0); ABG HCO3 19.2 mmol/L (21.0-28.0); ABG OXYGEN SATURATION 98.8 % (94.0-98.0); ABG PCO2 (T) 38.1 mmHg (35.0-48.0); ABG PH (T) 7.326 (7.350-7.450); ABG PO2 (T) 139.2 mmHg (83.0-108.0); FCOHb 0.7 % (0.5-1.5); FHHb 1.2 % (0.0-5.0); FMetHb 0.1 % (0.0-1.5); MODE VENT - AC; PATIENT TEMPERATURE 38.1; PEEP 5 cm H2O; RESPIRATORY RATE 22 b/min; TIDAL VOLUME 450 mL; TOTAL HEMOGLOBIN 15.8 G/dl (13.5-17.5)
[2024-03-26] MEDS: thiamine 100mg tablet NG SCH (15:54)
[2024-03-26] MEDS: folic acid 1mg tablet NG SCH (15:54)
[2024-03-26] MEDS: MULTIVIT-MIN/FERROUS GLUCONATE 9 MG/15 ML LIQUID NG SCH (15:55)
[2024-03-26] MEDS: calcium acetate 667mg (PhosLO) capsule NG SCH (17:11)
[2024-03-26 20:27] LABS: APTT 56 SECONDS (22-32)
[2024-03-26 20:30] LABS: ALBUMIN 2.6 G/DL (3.4-5.0); ANION GAP 7 (8-16); BLOOD UREA NITROGEN 51 MG/DL (7-18); BUN/CREATININE RATIO 22.5 (10.0-20.0); CALCIUM 6.7 MG/DL (8.5-10.1); CHLORIDE 97 MMOL/L (99-107); CREATININE 2.27 MG/DL (0.60-1.10); GLUCOSE 170 MG/DL (70-104); POTASSIUM 4.4 MMOL/L (3.5-5.1); SODIUM 132 MMOL/L (135-145); TOTAL CARBON DIOXIDE 28.3 MMOL/L (24-32); eCRCL 43 ML/MIN; eGFR 30 ML/MIN
[2024-03-26] MEDS: CEFEPIME 2gm in D5W 50mL 50 ML IV SCH (21:32)
[2024-03-27] VITALS (36 sets, daily range): BP systolic 93–123; BP diastolic 59–84; PULSE 82–98; RESP 9–22; O2SAT 92–100
[2024-03-27] MEDS: vasopressin inj. 40 UNIT in normal saline 50ml IV soln 38 ML IV SCH
[2024-03-27 02:42] LABS: EOSINOPHILS % (AUTO) 0 % (0-6); MEAN CORPUSCULAR VOLUME 99.5 FL (78-98); MONOCYTES # (AUTO) 0.7 X10'3 (0-0.9); WHITE BLOOD COUNT 15.5 X10'3 (4.5-11.0)
[2024-03-27 02:44] LABS: BASOPHILS % (AUTO) 0.2 % (0-1); HEMATOCRIT 41.9 % (42.0-52.0); HEMOGLOBIN 13.9 g/dl (14.0-17.9); LYMPHOCYTES # (AUTO) 0.5 X10'3 (1.1-4.8); LYMPHOCYTES % (AUTO) 3.4 % (21-51); MEAN CORPUSCULAR HGB CONC 33.2 g/dL (33.0-36.5); MONOCYTES % (AUTO) 4.4 % (2-12); NEUTROPHILS # (AUTO) 14.3 X10'3 (1.8-7.7); PLATELET COUNT 352 X10'3 (140-440); RED BLOOD COUNT 4.21 X10'6 (4.70-6.10); RED CELL DISTRIBUTION WIDTH 14.1 % (11.5-14.5)
[2024-03-27 02:57] LABS: APTT 60 SECONDS (22-32); INR 1.6 INR; PROTHROMBIN TIME 15.9 SECONDS (9.0-12.0)
[2024-03-27 03:03] LABS: ALBUMIN 2.6 G/DL (3.4-5.0); ALBUMIN/GLOBULIN RATIO 0.9 (1.1-1.5); ALKALINE PHOSPHATASE 111 IU/L (46-116); ANION GAP 5 (8-16); BILIRUBIN,TOTAL 0.9 MG/DL (0.1-1.0); BLOOD UREA NITROGEN 48 MG/DL (7-18); BUN/CREATININE RATIO 24.5 (10.0-20.0); CALCIUM 6.7 MG/DL (8.5-10.1); CHLORIDE 96 MMOL/L (99-107); CREATININE 1.96 MG/DL (0.60-1.10); GLUCOSE 161 MG/DL (70-104); MAGNESIUM 2.3 MG/DL (1.5-2.4); SODIUM 131 MMOL/L (135-145); TOTAL CARBON DIOXIDE 30.5 MMOL/L (24-32); TOTAL PROTEIN 5.6 G/DL (6.4-8.2); eCRCL 50 ML/MIN; eGFR 36 ML/MIN
[2024-03-27 03:09] LABS: POTASSIUM 4.4 MMOL/L (3.5-5.1)
[2024-03-27] MEDS: MESSAGE TO NURSING IV ONE ×3 (03:23→20:02)
[2024-03-27 03:52] LABS: ABG HCO3 30.1 mmol/L (21.0-28.0); ABG OXYGEN SATURATION 98.6 % (94.0-98.0); ABG PCO2 (T) 52.2 mmHg (35.0-48.0); ABG PH (T) 7.382 (7.350-7.450); ABG PO2 (T) 118.8 mmHg (83.0-108.0); FCOHb 0.7 % (0.5-1.5); FHHb 1.4 % (0.0-5.0); FMetHb 0.1 % (0.0-1.5); FO2Hb 97.8 % (94.0-98.0); MODE prvc; PATIENT TEMPERATURE 37.7; PEEP 5 cm H2O; RESPIRATORY RATE 18 b/min; TIDAL VOLUME 450 mL; TOTAL HEMOGLOBIN 14.6 G/dl (13.5-17.5)
[2024-03-27 04:53] LABS: ALANINE AMINOTRANSFERASE > 7000 U/L (12-78); ASPARTATE AMINO TRANSFERASE 6755 U/L (10-37)
[2024-03-27] MEDS: risperiDONE 2mg tablet PO ONE (10:10)
[2024-03-27] MEDS: NORepinephrine 8mg/ 250ml NS 250 ML IV SCH (13:00)
[2024-03-27] MEDS: DOBUTamine-DoBUTrex 500mg/D5W 250 ML IV SCH (20:03)
[2024-03-27] MEDS: heparin, porcine 5000 units/ml vial SQ SCH (20:15)
[2024-03-27] MEDS: morphine 4 MG/ML inj SYRINge IV PRN (22:42)
[2024-03-28] VITALS (28 sets, daily range): BP systolic 91–116; BP diastolic 57–80; PULSE 79–120; RESP 11–27; O2SAT 87–98
[2024-03-28 02:46] LABS: EOSINOPHILS # (AUTO) 0.2 X10'3 (0-0.9); HEMOGLOBIN 11.8 g/dl (14.0-17.9); MEAN PLATELET VOLUME 8.7 FL (7.4-10.4); MONOCYTES # (AUTO) 0.5 X10'3 (0-0.9); NEUTROPHILS # (AUTO) 9.6 X10'3 (1.8-7.7); WHITE BLOOD COUNT 11.7 X10'3 (4.5-11.0)
[2024-03-28 02:50] LABS: BASOPHILS % (AUTO) 0.3 % (0-1); EOSINOPHILS % (AUTO) 1.4 % (0-6); LYMPHOCYTES # (AUTO) 1.4 X10'3 (1.1-4.8); LYMPHOCYTES % (AUTO) 12.1 % (21-51); MEAN CORPUSCULAR HEMOGLOBIN 32.3 PG (27.0-31.0); MEAN CORPUSCULAR HGB CONC 32.8 g/dL (33.0-36.5); MEAN CORPUSCULAR VOLUME 98.6 FL (78-98); MONOCYTES % (AUTO) 4.5 % (2-12); NEUTROPHILS % (AUTO) 81.7 % (42-75); PLATELET COUNT 277 X10'3 (140-440); RED BLOOD COUNT 3.65 X10'6 (4.70-6.10); RED CELL DISTRIBUTION WIDTH 13.6 % (11.5-14.5)
[2024-03-28 03:04] LABS: ALBUMIN 2.3 G/DL (3.4-5.0); ALBUMIN/GLOBULIN RATIO 0.8 (1.1-1.5); ALKALINE PHOSPHATASE 107 IU/L (46-116); ANION GAP 2 (8-16); BILIRUBIN,TOTAL 1.4 MG/DL (0.1-1.0); BLOOD UREA NITROGEN 32 MG/DL (7-18); BUN/CREATININE RATIO 28.6 (10.0-20.0); CALCIUM 7.2 MG/DL (8.5-10.1); CHLORIDE 98 MMOL/L (99-107); CREATININE 1.12 MG/DL (0.60-1.10); GLUCOSE 133 MG/DL (70-104); MAGNESIUM 2.1 MG/DL (1.5-2.4); PHOSPHORUS 1.9 MG/DL (2.3-4.5); POTASSIUM 3.6 MMOL/L (3.5-5.1); SODIUM 136 MMOL/L (135-145); TOTAL CARBON DIOXIDE 35.9 MMOL/L (24-32); TOTAL PROTEIN 5.3 G/DL (6.4-8.2); eCRCL 87 ML/MIN; eGFR 68 ML/MIN
[2024-03-28 03:20] LABS: NUCLEATED RED BLOOD CELLS 4 /100WBC (0-0); TOTAL CELLS COUNTED 100
[2024-03-28 03:22] LABS: PLATELET ESTIMATE NORMAL; POIKILOCYTOSIS 1+
[2024-03-28 03:30] LABS: ELLIPTOCYTES FEW; TARGET CELLS FEW; TEAR DROP CELLS FEW
[2024-03-28 03:31] LABS: ASPARTATE AMINO TRANSFERASE 2304 U/L (10-37)
[2024-03-28 03:40] LABS: ALANINE AMINOTRANSFERASE 5909 U/L (12-78)
[2024-03-28] MEDS: morphine 2 MG/ML inj. syringe IV PRN ×2 (03:42→19:27)
[2024-03-28] MEDS ORDERED: magnesium sulf-water 4G/100mL 100 ML IV PRN ×2 (08:50)
[2024-03-28] MEDS ORDERED: potassium Cl 40MEQ/1/2NS 520ml 520 ML IV PRN (08:50)
[2024-03-28] MEDS ORDERED: potassium Cl 20 mEq SR tablet PO PRN (08:50)
[2024-03-28] MEDS ORDERED: magnesium sulf-water 2g/50mL 50 ML IV PRN ×2 (08:50)
[2024-03-28] MEDS ORDERED: potassium Cl 40MEQ/270ML bag 250 ML IV PRN (08:50)
[2024-03-28] MEDS: spironolactone 25 MG tablet PO SCH (10:05)
[2024-03-28] MEDS ORDERED: amiodarone 200mg tablet PO SCH (11:00)
[2024-03-28] MEDS ORDERED: mag hydrox/Alum hydrox/simeth 30ml oral suspension PO PRN (11:01)
[2024-03-28] MEDS: digoxin 250mcg/ml 2ml ampule IV ONE (12:23)
[2024-03-28] MEDS: amiodarone 50MG/ML inj IV ONE (12:24)
[2024-03-28] MEDS: calcium acetate 667mg (PhosLO) capsule PO SCH (12:49)
[2024-03-28] MEDS: HEPARIN DRIP-CARDIAC**PHARMACIST-TO-DOSE IV ONE (13:30)
[2024-03-28] MEDS: MESSAGE TO NURSING IV ONE ×2 (14:10→21:05)
[2024-03-28 14:11] LABS: BASOPHILS % (AUTO) 0.2 % (0-1); EOSINOPHILS # (AUTO) 0.4 X10'3 (0-0.9)
[2024-03-28 14:12] LABS: HEMATOCRIT 38.1 % (42.0-52.0); HEMOGLOBIN 12.5 g/dl (14.0-17.9); LYMPHOCYTES # (AUTO) 1.6 X10'3 (1.1-4.8); MEAN CORPUSCULAR HEMOGLOBIN 32.6 PG (27.0-31.0); MEAN CORPUSCULAR HGB CONC 32.8 g/dL (33.0-36.5); MEAN CORPUSCULAR VOLUME 99.5 FL (78-98); MEAN PLATELET VOLUME 8.8 FL (7.4-10.4); MONOCYTES # (AUTO) 0.9 X10'3 (0-0.9); MONOCYTES % (AUTO) 6.8 % (2-12); NEUTROPHILS # (AUTO) 9.8 X10'3 (1.8-7.7); PLATELET COUNT 245 X10'3 (140-440); RED BLOOD COUNT 3.83 X10'6 (4.70-6.10); RED CELL DISTRIBUTION WIDTH 14.1 % (11.5-14.5); WHITE BLOOD COUNT 12.7 X10'3 (4.5-11.0)
[2024-03-28 14:22] LABS: INR 1.2 INR; PROTHROMBIN TIME 12.5 SECONDS (9.0-12.0)
[2024-03-28 14:27] LABS: ALBUMIN 2.5 G/DL (3.4-5.0); ALBUMIN/GLOBULIN RATIO 0.8 (1.1-1.5); ALKALINE PHOSPHATASE 126 IU/L (46-116); ANION GAP 2 (8-16); BILIRUBIN,TOTAL 1.6 MG/DL (0.1-1.0); BLOOD UREA NITROGEN 27 MG/DL (7-18); BUN/CREATININE RATIO 25.5 (10.0-20.0); CALCIUM 7.8 MG/DL (8.5-10.1); CHLORIDE 96 MMOL/L (99-107); CREATININE 1.06 MG/DL (0.60-1.10); GLUCOSE 125 MG/DL (70-104); MAGNESIUM 1.9 MG/DL (1.5-2.4); PHOSPHORUS 2.6 MG/DL (2.3-4.5); POTASSIUM 3.5 MMOL/L (3.5-5.1); SODIUM 132 MMOL/L (135-145); TOTAL CARBON DIOXIDE 33.8 MMOL/L (24-32); TOTAL PROTEIN 5.7 G/DL (6.4-8.2); eCRCL 92 ML/MIN; eGFR 73 ML/MIN
[2024-03-28 14:40] LABS: ALANINE AMINOTRANSFERASE 5395 U/L (12-78); ASPARTATE AMINO TRANSFERASE 1394 U/L (10-37)
[2024-03-28] MEDS: amiodarone 150mg/dext, iso-os 100 ML IV ONE (17:32)
[2024-03-28] MEDS: heparin 25,000 UNIT/250ml bag 250 ML IV PRN (17:58)
[2024-03-28] MEDS: amiodarone/D5 360MG/200ML BAG 200 ML IV SCH (18:00)
[2024-03-28] MEDS: digoxin 250mcg/ml 2ml ampule IV SCH (18:04)
[2024-03-28] MEDS: docusate sod 100mg capsule PO SCH (19:26)
[2024-03-28] MEDS: heparin 10,000 units/1 ML INJ IV PRN (21:21)
[2024-03-28 23:35] LABS: ALBUMIN 2.5 G/DL (3.4-5.0); ALBUMIN/GLOBULIN RATIO 0.8 (1.1-1.5); ALKALINE PHOSPHATASE 129 IU/L (46-116); ANION GAP 4 (8-16); ASPARTATE AMINO TRANSFERASE 845 U/L (10-37); BILIRUBIN,TOTAL 1.9 MG/DL (0.1-1.0); BLOOD UREA NITROGEN 25 MG/DL (7-18); BUN/CREATININE RATIO 27.8 (10.0-20.0); CHLORIDE 97 MMOL/L (99-107); GLUCOSE 123 MG/DL (70-104); POTASSIUM 3.6 MMOL/L (3.5-5.1); SODIUM 133 MMOL/L (135-145); TOTAL CARBON DIOXIDE 32.5 MMOL/L (24-32); TOTAL PROTEIN 5.7 G/DL (6.4-8.2); eCRCL 108 ML/MIN; eGFR 88 ML/MIN
[2024-03-29] VITALS (25 sets, daily range): BP systolic 94–128; BP diastolic 62–92; PULSE 80–112; RESP 13–26; TEMP 97.1–97.7; O2SAT 88–99
[2024-03-29] MEDS: potassium Cl 20mEq/100mL bag 100 ML IV PRN (00:01)
[2024-03-29 00:32] LABS: ALANINE AMINOTRANSFERASE 4325 U/L (12-78)
[2024-03-29 03:49] LABS: BASOPHILS % (AUTO) 0.2 % (0-1); EOSINOPHILS # (AUTO) 0.4 X10'3 (0-0.9); HEMOGLOBIN 12.1 g/dl (14.0-17.9); MEAN CORPUSCULAR HEMOGLOBIN 32.8 PG (27.0-31.0); MONOCYTES # (AUTO) 0.7 X10'3 (0-0.9); PLATELET COUNT 200 X10'3 (140-440)
[2024-03-29 03:50] LABS: EOSINOPHILS % (AUTO) 3.6 % (0-6); HEMATOCRIT 37.1 % (42.0-52.0); LYMPHOCYTES # (AUTO) 1.9 X10'3 (1.1-4.8); LYMPHOCYTES % (AUTO) 18.8 % (21-51); MEAN CORPUSCULAR HGB CONC 32.7 g/dL (33.0-36.5); MEAN CORPUSCULAR VOLUME 100.2 FL (78-98); MEAN PLATELET VOLUME 9.1 FL (7.4-10.4); MONOCYTES % (AUTO) 6.7 % (2-12); NEUTROPHILS # (AUTO) 7.2 X10'3 (1.8-7.7); NEUTROPHILS % (AUTO) 70.7 % (42-75); RED CELL DISTRIBUTION WIDTH 14.1 % (11.5-14.5); WHITE BLOOD COUNT 10.2 X10'3 (4.5-11.0)
[2024-03-29 03:57] LABS: INR 1.3 INR
[2024-03-29 04:01] LABS: PROTHROMBIN TIME 13.1 SECONDS (9.0-12.0)
[2024-03-29 04:04] LABS: ALBUMIN 2.4 G/DL (3.4-5.0); ALBUMIN/GLOBULIN RATIO 0.8 (1.1-1.5); ALKALINE PHOSPHATASE 122 IU/L (46-116); ANION GAP 1 (8-16); ASPARTATE AMINO TRANSFERASE 661 U/L (10-37); BILIRUBIN,TOTAL 1.9 MG/DL (0.1-1.0); BLOOD UREA NITROGEN 23 MG/DL (7-18); BUN/CREATININE RATIO 26.7 (10.0-20.0); CALCIUM 7.8 MG/DL (8.5-10.1); CHLORIDE 96 MMOL/L (99-107); CREATININE 0.86 MG/DL (0.60-1.10); GLUCOSE 128 MG/DL (70-104); MAGNESIUM 1.7 MG/DL (1.5-2.4); PHOSPHORUS 2.6 MG/DL (2.3-4.5); POTASSIUM 3.9 MMOL/L (3.5-5.1); SODIUM 131 MMOL/L (135-145); TOTAL CARBON DIOXIDE 34.4 MMOL/L (24-32); TOTAL PROTEIN 5.4 G/DL (6.4-8.2); eCRCL 113 ML/MIN; eGFR > 90 ML/MIN
[2024-03-29] MEDS: MESSAGE TO NURSING IV ONE ×2 (04:10→10:31)
[2024-03-29 04:14] LABS: ALANINE AMINOTRANSFERASE 568 U/L (12-78)
[2024-03-29 06:58] LABS: NUCLEATED RED BLOOD CELLS 9 /100WBC (0-0); TOTAL CELLS COUNTED 100
[2024-03-29 07:00] LABS: PLATELET ESTIMATE NORMAL
[2024-03-29 07:01] LABS: ACANTHOCYTES FEW; BURR CELLS FEW; ELLIPTOCYTES FEW; POLYCHROMASIA FEW; TEAR DROP CELLS 1+; TOXIC GRANULATION 1+
[2024-03-29] MEDS: thiamine 100mg tablet PO SCH (07:13)
[2024-03-29] MEDS: folic acid 1mg tablet PO SCH (07:13)
[2024-03-29] MEDS: aspirin 81mg tab.chew PO SCH (07:14)
[2024-03-29] MEDS: MULTIVIT-MIN/FERROUS GLUCONATE 9 MG/15 ML LIQUID PO SCH (07:14)
[2024-03-29] MEDS: VANCOMYCIN LEVEL IV ONE (08:07)
[2024-03-29] MEDS: amiodarone 200mg tablet PO SCH (13:59)
[2024-03-29] MEDS: apixaban 5mg tablet PO SCH (13:59)
[2024-03-29] MEDS: VANCOMYCIN 1GM 200ML H20 (PEG) 200 ML IV SCH (23:20)
[2024-03-30] VITALS (22 sets, daily range): BP systolic 104–126; BP diastolic 70–86; PULSE 82–117; RESP 18–32; TEMP 97.5–99; O2SAT 93–100
[2024-03-30] MEDS ORDERED: guaiFENesin 200mg/20mg codeine phos 10ml UD oral syrup PO ONE (00:05)
[2024-03-30] MEDS: benzonatate 100mg capsule PO PRN (17:36)
[2024-03-30] MEDS: carVEDilol 3.125mg tablet PO SCH (20:03)
[2024-03-30] MEDS: nitroGLYCERIN 0.4mg SUBLingual tab SL PRN (23:40)
[2024-03-30] MEDS: magnesium hydroxide 30ml (MOM) UD suspension PO PRN (23:54)
[2024-03-31] VITALS (24 sets, daily range): BP systolic 91–131; BP diastolic 50–80; PULSE 57–112; RESP 18–41; TEMP 97–98.8; O2SAT 90–99
[2024-03-31 04:54] LABS: BASOPHILS # (AUTO) 0.1 X10'3 (0-0.2); BASOPHILS % (AUTO) 0.6 % (0-1); EOSINOPHILS # (AUTO) 0.2 X10'3 (0-0.9); EOSINOPHILS % (AUTO) 1.4 % (0-6); HEMATOCRIT 39.9 % (42.0-52.0); HEMOGLOBIN 13.2 g/dl (14.0-17.9); LYMPHOCYTES # (AUTO) 1.7 X10'3 (1.1-4.8); LYMPHOCYTES % (AUTO) 9.5 % (21-51); MEAN CORPUSCULAR HEMOGLOBIN 32.9 PG (27.0-31.0); MEAN CORPUSCULAR VOLUME 99.4 FL (78-98); MEAN PLATELET VOLUME 8.7 FL (7.4-10.4); MONOCYTES # (AUTO) 1.6 X10'3 (0-0.9); MONOCYTES % (AUTO) 9.1 % (2-12); NEUTROPHILS # (AUTO) 14.4 X10'3 (1.8-7.7); NEUTROPHILS % (AUTO) 79.4 % (42-75); PLATELET COUNT 158 X10'3 (140-440); RED BLOOD COUNT 4.01 X10'6 (4.70-6.10); RED CELL DISTRIBUTION WIDTH 14.5 % (11.5-14.5); WHITE BLOOD COUNT 18.2 X10'3 (4.5-11.0)
[2024-03-31 05:15] LABS: ANION GAP 9 (8-16); BLOOD UREA NITROGEN 14 MG/DL (7-18); BUN/CREATININE RATIO 15.9 (10.0-20.0); CALCIUM 8.1 MG/DL (8.5-10.1); CHLORIDE 101 MMOL/L (99-107); CREATININE 0.88 MG/DL (0.60-1.10); GLUCOSE 120 MG/DL (70-104); MAGNESIUM 1.7 MG/DL (1.5-2.4); PHOSPHORUS 4.1 MG/DL (2.3-4.5); SODIUM 135 MMOL/L (135-145); TOTAL CARBON DIOXIDE 25.4 MMOL/L (24-32); TOTAL PROTEIN 5.8 G/DL (6.4-8.2); eCRCL 110 ML/MIN; eGFR 90 ML/MIN
[2024-03-31 05:16] LABS: ALBUMIN 2.4 G/DL (3.4-5.0); ALBUMIN/GLOBULIN RATIO 0.7 (1.1-1.5); ALKALINE PHOSPHATASE 132 IU/L (46-116); ASPARTATE AMINO TRANSFERASE 150 U/L (10-37)
[2024-03-31 05:20] LABS: MYCOPLASMA PNEUMONIAE, IGM AB <770 U/mL (0-769)
[2024-03-31 05:49] LABS: ALANINE AMINOTRANSFERASE 1822 U/L (12-78)
[2024-03-31 07:20] LABS: INR 1.3 INR; PROTHROMBIN TIME 12.9 SECONDS (9.0-12.0)
[2024-03-31] MEDS: VANCOMYCIN LEVEL IV ONE ×2 (08:30→20:59)
[2024-03-31] MEDS: LORazepam 2 mg/ml vial IV PRN (13:46)
[2024-03-31] MEDS ORDERED: iohexol 350MG/ML 100ml bottle IV ONE (20:24)
[2024-04-01] VITALS (16 sets, daily range): BP systolic 81–148; BP diastolic 47–90; PULSE 69–103; RESP 18–37; TEMP 96.3–98.7; O2SAT 69–99
[2024-04-01 05:22] LABS: MYCOPLASMA PNEUMONIAE, IGG AB 396 U/mL (0-99)
[2024-04-01 06:34] LABS: BASOPHILS # (AUTO) 0.2 X10'3 (0-0.2); BASOPHILS % (AUTO) 0.8 % (0-1); EOSINOPHILS % (AUTO) 0 % (0-6); HEMATOCRIT 41.1 % (42.0-52.0); HEMOGLOBIN 13.6 g/dl (14.0-17.9); LYMPHOCYTES # (AUTO) 1.5 X10'3 (1.1-4.8); LYMPHOCYTES % (AUTO) 6.1 % (21-51); MEAN CORPUSCULAR HGB CONC 33.1 g/dL (33.0-36.5); MEAN CORPUSCULAR VOLUME 99.8 FL (78-98); MEAN PLATELET VOLUME 9.6 FL (7.4-10.4); MONOCYTES # (AUTO) 1.7 X10'3 (0-0.9); MONOCYTES % (AUTO) 6.8 % (2-12); NEUTROPHILS # (AUTO) 21.3 X10'3 (1.8-7.7); NEUTROPHILS % (AUTO) 86.3 % (42-75); PLATELET COUNT 161 X10'3 (140-440); RED BLOOD COUNT 4.12 X10'6 (4.70-6.10); RED CELL DISTRIBUTION WIDTH 14.5 % (11.5-14.5); WHITE BLOOD COUNT 24.6 X10'3 (4.5-11.0)
[2024-04-01 07:04] LABS: ALBUMIN 2.6 G/DL (3.4-5.0); ALBUMIN/GLOBULIN RATIO 0.7 (1.1-1.5); ALKALINE PHOSPHATASE 141 IU/L (46-116); ANION GAP 11 (8-16); ASPARTATE AMINO TRANSFERASE 79 U/L (10-37); BILIRUBIN,TOTAL 1.9 MG/DL (0.1-1.0); BLOOD UREA NITROGEN 31 MG/DL (7-18); BUN/CREATININE RATIO 24.4 (10.0-20.0); CALCIUM 8.3 MG/DL (8.5-10.1); CHLORIDE 91 MMOL/L (99-107); CREATININE 1.27 MG/DL (0.60-1.10); GLUCOSE 151 MG/DL (70-104); MAGNESIUM 1.9 MG/DL (1.5-2.4); PHOSPHORUS 6.3 MG/DL (2.3-4.5); POTASSIUM 4.6 MMOL/L (3.5-5.1); SODIUM 126 MMOL/L (135-145); TOTAL CARBON DIOXIDE 23.6 MMOL/L (24-32); TOTAL PROTEIN 6.2 G/DL (6.4-8.2); eCRCL 76 ML/MIN; eGFR 59 ML/MIN
[2024-04-01 07:20] LABS: ALANINE AMINOTRANSFERASE 1329 U/L (12-78)
[2024-04-01] MEDS ORDERED: morphine 2 MG/ML inj. syringe IV PRN (10:05)
[2024-04-01] MEDS: normal saline 1000ml 1,000 ML IV SCH (10:10)
[2024-04-01 10:30] LABS: ABG BASE EXCESS -4.6 mmol/L (-2.0-3.0); ABG HCO3 14.7 mmol/L (21.0-28.0); ABG OXYGEN SATURATION 95.6 % (94.0-98.0); ABG PCO2 (T) 16.7 mmHg (35.0-48.0); ABG PH (T) 7.561 (7.350-7.450); ALLEN'S TEST POSITIVE; FCOHb 1.2 % (0.5-1.5); FHHb 4.3 % (0.0-5.0); FMetHb 0.3 % (0.0-1.5); FO2Hb 94.2 % (94.0-98.0); MODE NASAL CANNULA; PATIENT TEMPERATURE 36.3; TOTAL HEMOGLOBIN 14.8 G/dl (13.5-17.5)
[2024-04-01] MEDS: DOBUTamine-DoBUTrex 500mg/D5W 250 ML IV SCH (12:49)
[2024-04-01] MEDS: LORazepam 1 MG tablet PO PRN (14:06)
[2024-04-01] MEDS: albuterol 2.5 MG/3 ML nebule NEB SCH (15:29)
[2024-04-01] MEDS: normal saline 1000ml 1,000 ML IV ONE (17:10)
[2024-04-01] MEDS: methylPREDNISolone sod succ/PF 40mg inj. IV SCH (19:30)
[2024-04-01] MEDS: VANCOMYCIN/WATER FOR INJ (PEG) 1.25GM/250 ML IVPB IV SCH (21:46)
[2024-04-02] VITALS (30 sets, daily range): BP systolic 63–99; BP diastolic 40–72; PULSE 67–87; RESP 15–31; TEMP 96.7; O2SAT 75–100
[2024-04-02] MEDS ORDERED: LORazepam 2 mg/ml vial IV PRN (00:50)
[2024-04-02] MEDS: LORazepam 2 mg/ml vial IV PRN (03:01)
[2024-04-02 07:17] LABS: BASOPHILS % (AUTO) 0 % (0-1); EOSINOPHILS % (AUTO) 0 % (0-6); HEMATOCRIT 41.7 % (42.0-52.0); HEMOGLOBIN 13.4 g/dl (14.0-17.9); LYMPHOCYTES # (AUTO) 1.2 X10'3 (1.1-4.8); LYMPHOCYTES % (AUTO) 4.9 % (21-51); MEAN CORPUSCULAR HEMOGLOBIN 32.1 PG (27.0-31.0); MEAN CORPUSCULAR HGB CONC 32.1 g/dL (33.0-36.5); MEAN CORPUSCULAR VOLUME 100.2 FL (78-98); MONOCYTES % (AUTO) 4.2 % (2-12); NEUTROPHILS # (AUTO) 21.5 X10'3 (1.8-7.7); NEUTROPHILS % (AUTO) 90.9 % (42-75); PLATELET COUNT 193 X10'3 (140-440); RED BLOOD COUNT 4.16 X10'6 (4.70-6.10); WHITE BLOOD COUNT 23.7 X10'3 (4.5-11.0)
[2024-04-02 07:45] LABS: TOTAL CARBON DIOXIDE 18.6 MMOL/L (24-32)
[2024-04-02 08:03] LABS: ALBUMIN 2.6 G/DL (3.4-5.0); ALBUMIN/GLOBULIN RATIO 0.7 (1.1-1.5); ALKALINE PHOSPHATASE 171 IU/L (46-116); ANION GAP 16 (8-16); ASPARTATE AMINO TRANSFERASE 120 U/L (10-37); BILIRUBIN,TOTAL 1.8 MG/DL (0.1-1.0); BLOOD UREA NITROGEN 51 MG/DL (7-18); BUN/CREATININE RATIO 26.7 (10.0-20.0); CALCIUM 8.6 MG/DL (8.5-10.1); CHLORIDE 90 MMOL/L (99-107); CREATININE 1.91 MG/DL (0.60-1.10); GLUCOSE 155 MG/DL (70-104); MAGNESIUM 2.3 MG/DL (1.5-2.4); PHOSPHORUS 8.2 MG/DL (2.3-4.5); POTASSIUM 5.1 MMOL/L (3.5-5.1); SODIUM 125 MMOL/L (135-145); TOTAL PROTEIN 6.4 G/DL (6.4-8.2); eCRCL 51 ML/MIN; eGFR 37 ML/MIN
[2024-04-02 08:05] LABS: ALANINE AMINOTRANSFERASE 1089 U/L (12-78)
[2024-04-02] MEDS: spironolactone 25 MG tablet PO SCH (08:29)
[2024-04-02 10:24] LABS: ABG BASE EXCESS -10.4 mmol/L (-2.0-3.0); ABG HCO3 11.4 mmol/L (21.0-28.0); ABG OXYGEN SATURATION 99.4 % (94.0-98.0); ABG PCO2 (T) 18.2 mmHg (35.0-48.0); ABG PH (T) 7.413 (7.350-7.450); ABG PO2 (T) 151.2 mmHg (83.0-108.0); ALLEN'S TEST POSITIVE; FHHb 0.6 % (0.0-5.0); FMetHb 0.3 % (0.0-1.5); FO2Hb 98.1 % (94.0-98.0); MODE MASK - NRB; TOTAL HEMOGLOBIN 14.5 G/dl (13.5-17.5)
[2024-04-02 11:30] LABS: ABG BASE EXCESS -15.5 mmol/L (-2.0-3.0); ABG HCO3 11.4 mmol/L (21.0-28.0); ABG OXYGEN SATURATION 99.2 % (94.0-98.0); ABG PCO2 (T) 29.7 mmHg (35.0-48.0); ABG PH (T) 7.198 (7.350-7.450); ABG PO2 (T) 175.6 mmHg (83.0-108.0); ALLEN'S TEST POSITIVE; FCOHb 0.7 % (0.5-1.5); FHHb 0.8 % (0.0-5.0); FO2Hb 98.5 % (94.0-98.0); MODE VENT - PRVC; PATIENT TEMPERATURE 36.1; PEEP 10 cm H2O; RESPIRATORY RATE 16 b/min; TIDAL VOLUME 500 mL; TOTAL HEMOGLOBIN 14.9 G/dl (13.5-17.5)
[2024-04-02] MEDS ORDERED: vasopressin inj. 40 UNIT in dextrose 5%-water 50ml 38 ML IV SCH (13:55)
[2024-04-02] MEDS: epiNEPHrine inj 5 MG in normal saline 250ml IV soln 245 ML IV SCH (14:12)
[2024-04-02] MEDS: midazolam 1 mg/ML 2ml injection ONE ×2 (14:12→14:13)
[2024-04-02] MEDS: propofol 1000mg/100ml bottle 100 ML IV SCH ×2 (14:17→20:16)
[2024-04-02] MEDS: FENTANYL-0.9 % NACL/PF 100 ML IV SCH (14:18)
[2024-04-02] MEDS: vasopressin inj. 40 UNIT in normal saline 50ml IV soln 38 ML IV SCH (14:32)
[2024-04-02] MEDS: COMMUNICATION ORDER 1 EA MISC MC ONE ×2 (14:50→20:15)
[2024-04-02 15:04] LABS: ABG BASE EXCESS -19.2 mmol/L (-2.0-3.0); ABG HCO3 9.3 mmol/L (21.0-28.0); ABG OXYGEN SATURATION 99.9 % (94.0-98.0); ABG PCO2 (T) 31.7 mmHg (35.0-48.0); ABG PO2 (T) 289.1 mmHg (83.0-108.0); FCOHb 0.8 % (0.5-1.5); FHHb 0.1 % (0.0-5.0); FO2Hb 99.1 % (94.0-98.0); MODE VENT - APRV; PATIENT TEMPERATURE 37.6
[2024-04-02] MEDS: sodium bicarbonate (8.4%) 1 mEq/ml syringe IV ONE (15:24)
[2024-04-02] MEDS: epiNEPHrine inj 10 MG in normal saline 250ml IV soln 240 ML IV SCH (16:17)
[2024-04-02] MEDS: sodium bicarbonate 1meq/ml inj 150 ML in dextrose 5%-water 1,000 ML IV SCH (16:18)
[2024-04-02] MEDS: sodium bicarbonate (8.4%) 1 mEq/ml syringe ONE (16:19)
[2024-04-02] MEDS: DOBUTamine-DoBUTrex 500mg/D5W 250 ML IV SCH (20:16)
[2024-04-03] VITALS (21 sets, daily range): BP systolic 55–100; BP diastolic 32–63; PULSE 73–90; RESP 14–24; O2SAT 81–98
[2024-04-03 02:46] LABS: ABG BASE EXCESS -20.9 mmol/L (-2.0-3.0); ABG HCO3 9.5 mmol/L (21.0-28.0); ABG OXYGEN SATURATION 99.4 % (94.0-98.0); ABG PCO2 (T) 40.2 mmHg (35.0-48.0); ABG PO2 (T) 193.7 mmHg (83.0-108.0); FCOHb 0.6 % (0.5-1.5); FHHb 0.6 % (0.0-5.0); FMetHb 0.1 % (0.0-1.5); FO2Hb 98.7 % (94.0-98.0); MODE VENT - prvc; PATIENT TEMPERATURE 37.9; PEEP 5 cm H2O; RESPIRATORY RATE 16 b/min; TIDAL VOLUME 500 mL; TOTAL HEMOGLOBIN 14.1 G/dl (13.5-17.5)
[2024-04-03 02:50] LABS: BASOPHILS # (AUTO) 0.1 X10'3 (0-0.2); BASOPHILS % (AUTO) 0.2 % (0-1); EOSINOPHILS % (AUTO) 0.1 % (0-6); HEMATOCRIT 42.1 % (42.0-52.0); HEMOGLOBIN 13.1 g/dl (14.0-17.9); LYMPHOCYTES # (AUTO) 0.4 X10'3 (1.1-4.8); LYMPHOCYTES % (AUTO) 1.3 % (21-51); MEAN CORPUSCULAR HEMOGLOBIN 32.6 PG (27.0-31.0); MEAN CORPUSCULAR HGB CONC 31.2 g/dL (33.0-36.5); MEAN CORPUSCULAR VOLUME 104.5 FL (78-98); MONOCYTES # (AUTO) 1.7 X10'3 (0-0.9); MONOCYTES % (AUTO) 5.3 % (2-12); NEUTROPHILS % (AUTO) 93.1 % (42-75); PLATELET COUNT 190 X10'3 (140-440); RED BLOOD COUNT 4.03 X10'6 (4.70-6.10); RED CELL DISTRIBUTION WIDTH 16.2 % (11.5-14.5)
[2024-04-03 02:53] LABS: OXYGEN SATURATION (MIXED VEN) 82.7 % (60-80); PO2 MIXED VENOUS (TEMP COR) 66.6 mmHg (35-46)
[2024-04-03 03:00] LABS: WHITE BLOOD COUNT 31.2 X10'3 (4.5-11.0)
[2024-04-03 03:09] LABS: ALBUMIN 2.4 G/DL (3.4-5.0); ALBUMIN/GLOBULIN RATIO 0.7 (1.1-1.5); ALKALINE PHOSPHATASE 204 IU/L (46-116); ANION GAP 27 (8-16); BILIRUBIN,TOTAL 2.8 MG/DL (0.1-1.0); BLOOD UREA NITROGEN 75 MG/DL (7-18); BUN/CREATININE RATIO 23.4 (10.0-20.0); CALCIUM 7.1 MG/DL (8.5-10.1); CHLORIDE 90 MMOL/L (99-107); GLUCOSE 136 MG/DL (70-104); MAGNESIUM 2.5 MG/DL (1.5-2.4); SODIUM 128 MMOL/L (135-145); TRIGLYCERIDES 125 MG/DL (20-135); eCRCL 30 ML/MIN; eGFR 20 ML/MIN
[2024-04-03 03:22] LABS: ALANINE AMINOTRANSFERASE 2918 U/L (12-78); PHOSPHORUS 13.5 MG/DL (2.3-4.5)
[2024-04-03 03:26] LABS: TOTAL CELLS COUNTED 100
[2024-04-03 03:52] LABS: ASPARTATE AMINO TRANSFERASE 3705 U/L (10-37)
[2024-04-03 03:55] LABS: POTASSIUM 6.1 MMOL/L (3.5-5.1)
[2024-04-03] MEDS: sodium bicarbonate (8.4%) 1 mEq/ml syringe ONE ×2 (04:02→04:57)
[2024-04-03] MEDS: sodium bicarbonate (8.4%) 1 mEq/ml syringe IV ONE ×2 (04:02→04:57)
[2024-04-03 04:46] LABS: ABG BASE EXCESS -17.7 mmol/L (-2.0-3.0); ABG HCO3 11.6 mmol/L (21.0-28.0); ABG PCO2 (T) 41.5 mmHg (35.0-48.0); ABG PO2 (T) 156.6 mmHg (83.0-108.0); FCOHb 0.6 % (0.5-1.5); FMetHb 0.1 % (0.0-1.5); FO2Hb 98.3 % (94.0-98.0); MODE VENT - prvc; PATIENT TEMPERATURE 37.9; PEEP 5 cm H2O; RESPIRATORY RATE 16 b/min; TIDAL VOLUME 500 mL; TOTAL HEMOGLOBIN 14.1 G/dl (13.5-17.5)
[2024-04-03] MEDS ORDERED: VANCOMYCIN LEVEL IV ONE (08:30)
[2024-04-03] MEDS: NORepinephrine 8mg/ 250ml NS 250 ML IV ONE (11:17)
[2024-04-03] MEDS ORDERED: LORazepam 2 mg/ml vial IV PRN ×2 (11:25)
== END 2024-04-03 17:52 | DRG 720 ==
LOC: ER 00:05 → ED HOLD 04:19 → EDBEDREQ 17:03 → CICU 2S 17:56 → PCU 3S 03-29 15:47 → CICU 2S 04-02 10:31
PROVIDERS: ADMIT Internal Medicine Critical Care Medicine; ATTEND Family Medicine
PROC: 02HV33Z Insertion of Infusion Device into Superior Vena Cava, Percutaneous Approach (ICD-10-PCS; principal; 2024-03-25)
PROC: 5A1945Z Respiratory Ventilation, 24-96 Consecutive Hours (ICD-10-PCS; 2024-03-25)
PROC: B548ZZA Ultrasonography of Superior Vena Cava, Guidance (ICD-10-PCS; 2024-03-25)
PROC: 0BH17EZ Insertion of Endotracheal Airway into Trachea, Via Natural or Artificial Opening (ICD-10-PCS; 2024-03-25)
PROC: B3251ZZ Computerized Tomography (CT Scan) of Bilateral Common Carotid Arteries using Low Osmolar Contrast (ICD-10-PCS; 2024-03-25)
PROC: B32G1ZZ Computerized Tomography (CT Scan) of Bilateral Vertebral Arteries using Low Osmolar Contrast (ICD-10-PCS; 2024-03-25)
PROC: B32R1ZZ Computerized Tomography (CT Scan) of Intracranial Arteries using Low Osmolar Contrast (ICD-10-PCS; 2024-03-25)
PROC: B3281ZZ Computerized Tomography (CT Scan) of Bilateral Internal Carotid Arteries using Low Osmolar Contrast (ICD-10-PCS; 2024-03-25)
PROC: B3251ZZ Computerized Tomography (CT Scan) of Bilateral Common Carotid Arteries using Low Osmolar Contrast (ICD-10-PCS; 2024-03-31)
PROC: B32G1ZZ Computerized Tomography (CT Scan) of Bilateral Vertebral Arteries using Low Osmolar Contrast (ICD-10-PCS; 2024-03-31)
PROC: B32R1ZZ Computerized Tomography (CT Scan) of Intracranial Arteries using Low Osmolar Contrast (ICD-10-PCS; 2024-03-31)
PROC: B3281ZZ Computerized Tomography (CT Scan) of Bilateral Internal Carotid Arteries using Low Osmolar Contrast (ICD-10-PCS; 2024-03-31)
PROC: 05HA33Z Insertion of Infusion Device into Left Brachial Vein, Percutaneous Approach (ICD-10-PCS; 2024-03-31)
PROC: 5A1935Z Respiratory Ventilation, Less than 24 Consecutive Hours (ICD-10-PCS; 2024-04-02)
PROC: 02HV33Z Insertion of Infusion Device into Superior Vena Cava, Percutaneous Approach (ICD-10-PCS; 2024-04-02)
PROC: B548ZZA Ultrasonography of Superior Vena Cava, Guidance (ICD-10-PCS; 2024-04-02)
PROC: 03HY32Z Insertion of Monitoring Device into Upper Artery, Percutaneous Approach (ICD-10-PCS; 2024-04-02)
PROC: 0BH17EZ Insertion of Endotracheal Airway into Trachea, Via Natural or Artificial Opening (ICD-10-PCS; 2024-04-02)
DX: A41.9 Sepsis, unspecified organism (principal); N17.0 Acute kidney failure with tubular necrosis; J96.01 Acute respiratory failure with hypoxia; R65.21 Severe sepsis with septic shock; Z20.822 Contact with and (suspected) exposure to COVID-19; I21.4 Non-ST elevation (NSTEMI) myocardial infarction; G93.41 Metabolic encephalopathy; I42.7 Cardiomyopathy due to drug and external agent; I48.91 Unspecified atrial fibrillation; I34.0 Nonrheumatic mitral (valve) insufficiency; Z66 Do not resuscitate; F15.90 Other stimulant use, unspecified, uncomplicated; I50.22 Chronic systolic (congestive) heart failure; E87.5 Hyperkalemia; E87.1 Hypo-osmolality and hyponatremia; R74.01 Elevation of levels of liver transaminase levels; F17.210 Nicotine dependence, cigarettes, uncomplicated; G89.29 Other chronic pain; Z51.5 Encounter for palliative care; Z83.3 Family history of diabetes mellitus; I25.2 Old myocardial infarction; Z79.82 Long term (current) use of aspirin; Z88.1 Allergy status to other antibiotic agents; Z88.5 Allergy status to narcotic agent; Z79.899 Other long term (current) drug therapy; Z59.00 Homelessness unspecified
CPT/HCPCS: 36410; 36415; 36600; 71045; 71275; 74018; 76700; 76937; 80048; 80053; 80061; 80202; 80305; 80320; 81001; 82140; 82800; 82803; 82810; 82948; 83605; 83735; 83880; 83930; 84100; 84134; 84145; 84478; 84484; 85007; 85018; 85025; 85379; 85610; 85651; 85730; 86738; 87040; 87070; 87081; 87502; 87503; 87811; 93005; 93308; 94002; 94003; 94640; 94760; 94799; 96365; 96375; 97116; 97161; 97530; 99285; A4333; A4615; A4620; A6213; A6258; A6590; A7015; A9900; C1751; C1758; G0378; J0171; J0282; J0456; J0610; J0692; J0696; J1160; J1200; J1250; J1630; J1644; J1815; J2060; J2250; J2270; J2560; J2704; J2919; J3010; J3372; J3480; J3490; J7030; J7040; J7050; J7070; J7120; Q9967